=== PATIENT | male | born 1975 | race Caucasian/White ===

== ENCOUNTER 2021-11-29 11:18 | Emergency (ER) | payer OTHER, SELFPAY ==
[2021-11-29 11:59] VITALS: BP 132/96; PULSE 69; RESP 18; TEMP 36.7; O2SAT 100; BMI 18.1
[2021-11-29 13:43] LABS: MANUAL DIFF FLAG NO
[2021-11-29 13:49] LABS: Basophils Absolute Auto 0.1 X10*3/uL (0.0-0.2); Basophils Percent Auto 1.5 % (0-2); Eosinophils Absolute Auto 0.1 X10*3/uL (0.0-0.4); Eosinophils Percent Auto 1.5 % (0-4); Hematocrit 41.3 % (42.0-52.0); Hemoglobin 14.3 g/dl (14.0-18.0); Imm Gran Abs Auto 0.01 X10*3/uL (0.00-0.03); Imm Gran Pct Auto 0.2 % (0.0-0.4); Lymphocytes Absolute Auto 1.5 X10*3/uL (1.2-4.9); Lymphocytes Percent Auto 27.3 % (20-40); Mean Corpuscular HGB Conc 34.6 g/dl (31.0-36.0); Mean Corpuscular Hemoglobin 31.6 pg (27.0-33.0); Mean Corpuscular Volume 91.4 fL (80.0-98.0); Monocytes Absolute Auto 0.4 X10*3/uL (0.1-1.2); Monocytes Percent Auto 7.8 % (2-11); Neutrophils Absolute Auto 3.3 x10*3/uL (2.0-8.3); Neutrophils Percent Auto 61.7 % (45-73); Platelet Count 383 X10*3/uL (160-400); Red Blood Count 4.52 X10*6/uL (4.60-5.80); Red Cell Distribution Width 12.6 % (11.0-16.0); White Blood Count 5.4 X10*3/uL (4.8-10.8)
[2021-11-29 13:59] LABS: COVID-19 Test Negative (Negative)
[2021-11-29 14:06] LABS: Anion Gap 14 (12-20); Blood Urea Nitrogen 10 mg/dL (9-16); Calcium 9.9 mg/dL (8.4-10.2); Carbon Dioxide 27 mmol/L (22-29); Chloride 104 mmol/L (96-108); Creatinine Clr Calc Pharmacy 86.6; Estimated Glomerular Filt Rate > 60; Glucose Random 84 mg/dL (60-115); Lipase 37 U/L (8-78); Potassium 4.1 mmol/L (3.3-5.1); Sodium 141 mmol/L (135-145)
[2021-11-29 14:07] LABS: Alanine Aminotransferase 11 U/L (0-40); Albumin Level 4.6 g/dL (3.5-5.0); Alkaline Phosphatase 51 U/L (39-117); Aspartate Amino Transferase 17 U/L (5-37); Bilirubin Direct 0.3 mg/dL (0.0-0.5); Bilirubin Total 0.8 mg/dL (0.0-1.0); Total Protein 7.9 g/dL (6.5-8.0)
--- NOTE | 2021-11-29 16:00 | PC.NURSE ---
hasn't had BM since . no BM since Thursday. strong steady gait. skin pwd. moist mm. no palor. will continue to await from .
[2021-11-29 16:01] VITALS: BP 147/97; PULSE 75; RESP 18; TEMP 36.4; O2SAT 100
== END 2021-11-29 20:43 | disposition left against medical advice (07) ==
PROVIDERS: Emergency Provider Emergency Medicine
DX: R10.12 Left upper quadrant pain (principal); Z20.822 Contact with and (suspected) exposure to COVID-19
CPT/HCPCS: 36415; 80048; 80076; 83690; 85025; 87635; 99282; 99283

== ENCOUNTER 2022-12-03 06:29 | Day surgery (SDC) | payer OTHER, SELFPAY ==
[2022-12-03] VITALS (12 sets, daily range): BP systolic 131–158; BP diastolic 83–102; PULSE 60–90; RESP 14–20; TEMP 36.5–37.3; O2SAT 98–100; BMI 16.7
--- NOTE | ~2022-12-03 | CT_ITS ---
EXAMINATION: CT ABDOMEN AND PELVIS WITH CONTRAST CLINICAL INFORMATION: Left-sided pain COMPARISON: None TECHNIQUE: Multidetector volumetric images were obtained from the superior aspect of the liver through the pubic symphysis following administration 85 mL of Omnipaque 350 intravenous contrast. Sagittal and coronal reformatted images were obtained on the technologist's workstation. Oral contrast: No This CT examination was performed using dose optimization techniques as appropriate, variously including the following: *Automated exposure control *Adjustment of mA and/or kV according to patient size (this includes techniques or standardized protocols for targeted exams where dose is matched to indication/reason for exam; i.e. extremities or head) *Use of iterative reconstruction technique DLP: 305 mGy-cm FINDINGS: LUNG BASES: The visualized lung bases are unremarkable. LIVER, GALLBLADDER, AND BILIARY TREE: The liver is normal in size, shape, and attenuation. No focal hepatic lesion or biliary ductal dilatation is present. The gallbladder is unremarkable with no evidence of radiopaque gallstones, gallbladder wall thickening, or obvious pericholecystic inflammatory changes. PANCREAS: Unremarkable. SPLEEN: Unremarkable. ADRENAL GLANDS: Unremarkable. KIDNEYS AND URETERS: Severe right hydronephrosis upstream from a 1.2 x 0.6 x 0.5 cm stone in the mid ureter at the level of L5/ S1. There is mildly decreased nephrographic enhancement of the right kidney with respect to the left. There are a few bilateral simple renal cysts which are benign. No follow-up required. No significant perinephric stranding. BLADDER: Unremarkable. GASTROINTESTINAL TRACT: Small posterior gastric fundal diverticulum. The small and large bowel are unremarkable. The appendix is unremarkable. ABDOMINAL WALL: No significant hernia is appreciated. LYMPH NODES: Normal. VASCULAR: Unremarkable. PELVIC VISCERA: Unremarkable. OSSEOUS STRUCTURES: No acute or suspicious osseous abnormalities. CT/CT abdomen pelvis w IV con IMPRESSION: Large stone in the mid RIGHT ureter measuring up to 1.2 cm associated with severe hydroureteronephrosis / obstructive uropathy.
--- NOTE | ~2022-12-03 | FL_ITS ---
EXAMINATION: XR FLUOROSCOPY WITH IMAGES CLINICAL INFORMATION: Cystoscopy. COMPARISON: None. TECHNIQUE: Fluoroscopy Supervised By: David Shaw MD Fluoroscopy Time: 159.3 seconds. Cumulative Dose: 21.87 mGy. Images: 2. FINDINGS: There are 2 digital images obtained in the OR revealing a cystoscopy probe in the right distal ureter guidewire coiled in the mid ureter/UP junction. No gross bony abnormality seen. FL/FL guidance in OR IMPRESSION: Fluoroscopy was provided to referring physician for the procedure.
[2022-12-03 06:12] LABS: Basophils Absolute Auto 0.1 X10*3/uL (0.0-0.2); Basophils Percent Auto 0.9 % (0-2); Eosinophils Absolute Auto 0.1 X10*3/uL (0.0-0.4); Eosinophils Percent Auto 1.3 % (0-4); Hematocrit 47.5 % (42.0-52.0); Hemoglobin 16.3 g/dl (14.0-18.0); Imm Gran Abs Auto 0.01 X10*3/uL (0.00-0.03); Imm Gran Pct Auto 0.1 % (0.0-0.4); Lymphocytes Absolute Auto 1.9 X10*3/uL (1.2-4.9); MANUAL DIFF FLAG NO; Mean Corpuscular HGB Conc 34.3 g/dl (31.0-36.0); Mean Corpuscular Hemoglobin 30.8 pg (27.0-33.0); Mean Corpuscular Volume 89.6 fL (80.0-98.0); Monocytes Absolute Auto 0.7 X10*3/uL (0.1-1.2); Monocytes Percent Auto 8.9 % (2-11); Neutrophils Percent Auto 64.8 % (45-73); Platelet Count 381 X10*3/uL (160-400); Red Cell Distribution Width 11.9 % (11.0-16.0); White Blood Count 7.8 X10*3/uL (4.8-10.8)
--- NOTE | 2022-12-03 06:28 | PC.NURSE ---
PT A&Ox4, reports 2/10 LUQ abd pain, no radiation. States it feels dull and achy. Blood work collected and sent to lab.
[2022-12-03 06:29] LABS: Alanine Aminotransferase 9 U/L (0-40); Albumin Level 4.8 g/dL (3.5-5.0); Alkaline Phosphatase 61 U/L (39-117); Anion Gap 18 (12-20); Aspartate Amino Transferase 17 U/L (5-37); Bilirubin Direct 0.3 mg/dL (0.0-0.5); Bilirubin Total 0.9 mg/dL (0.0-1.0); Blood Urea Nitrogen 18 mg/dL (9-16); Carbon Dioxide 24 mmol/L (22-29); Chloride 100 mmol/L (96-108); Creatinine Clr Calc Pharmacy 61.9; Estimated Glomerular Filt Rate > 60; Glucose Random 101 mg/dL (60-115); Lipase 41 U/L (8-78); Sodium 138 mmol/L (135-145); Total Protein 8.3 g/dL (6.5-8.0)
--- OUTSIDE RECORDS SUMMARY | 2022-12-03 06:31 | XMS_ITS | Continuity of Care Document ---
:1975 Author Organization [facility] Address [address] [place] [address]- Care Team Providers Name Role Phone Not on Staff, PCP Primary Care Physician Unavailable [place] [facility] [place]): [place]/29/21 - 12/29/21 [facility] [address], [place] [address] Attending Physician: Case North Admitting Physician: Case North Referring Physician: Case North Allergies, Adverse Reactions, Alerts No Known Allergies Medications Flomax 0.4 mg oral capsule 1 capsule = 0.4 mg, By Mouth, Daily, # 7 capsule, 0 Refills, Maintenance, 05/03/15 10:55:11 Start Date: 05/03/15 Stop Date: 05/10/15 Status: Ordered
--- NOTE | 2022-12-03 07:04 | ED.ABDPAIN ---
HPI - Abdominal Pain General Chief Complaint: Abdominal Pain Stated Complaint: Abd pain/Headache Time Seen by Provider: 12/03/22 06:55 Source: patient History of Present Illness HPI narrative: 47-year-old male with ?dull? left-sided abdominal pain since Thursday with multiple episodes of nausea and vomiting without diarrhea and denies any fever, chills, shortness of breath or chest pain and denies any urinary symptoms. He has never had this pain before and denies any unexplained weight loss or night sweats. Related Data Allergies Allergy/AdvReac Type Severity Reaction Status Date / Time No Known Allergies Allergy Verified 11/29/21 11:58 Review of Systems Review of Systems Pertinent positives and negatives as stated in HPI [facility] Past Medical History Source: nursing notes reviewed Social History Social History Alcohol intake: never Smoked in Last 30 Days: No Use of substances other than those prescribed or required for medical reasons: No Advance Directives: No Advance Directives Information Provided: Yes Physical Exam ED Vital Signs: Vital Signs - 24 hr 12/03/22 05:48 12/03/22 07:00 12/03/22 08:42 Temperature 97.8 F 97.9 F Pulse Rate 90 83 62 Respiratory Rate 18 20 16 Blood Pressure 158/100 H 149/102 H 131/94 H Pulse Oximetry 98 98 100 Oxygen Delivery Method Room Air Room Air Room Air BMI result Body Mass Index 16.7 VITAL SIGNS: Reviewed. GENERAL: Well developed, very slender, in no acute distress. HEAD: Normocephalic/atraumatic EYES: PERRLA, EOMI intact without pain, no nystagmus/pallor/icterus noted EARS: Ext canals without abnormality OROPHARYNX: no oral lesions noted, posterior pharynx clear LUNGS: Normal breath sounds. No adventitious sounds or accessory muscle use. SpO2<98> CARDIOVASCULAR: Regular rate and rhythm without noted murmurs ABDOMEN: Soft, non-tender even on deep palpation, non-distended with bowel sounds. MUSCULOSKELETAL: No tenderness, deformities, or effusions noted on gross inspection. EXTREMITIES: No cyanosis, clubbing or edema. SKIN: Inspection of the skin reveals no rashes NEUROLOGIC: Alert and oriented x 4. Strength and sensation to light touch were grossly intact x 4. Medical Decision Making Medical Decision Making MDM Narrative: 47-year-old male with left-sided dull abdominal pain and associated nausea and vomiting, negative surgical history of the abdomen and still has gallbladder and appendix. 0818: I have reviewed the workup and my interpretation is this patient has obstructive uropathy a stone measured at 1.2 cm with associated severe hydroureteronephrosis. I have reached out to the testing consultant from Urology, Dr. Shaw and made the patient NPO, giving IV fluids and pain medications. I did discuss the results and findings with the patient at bedside. 0820: Patient to be admitted to the Urology Service. Differential Diagnosis Please to the discussion above Admission/Observation Consideration of admission/observation: Escalation of care including admission/observation considered Consult Healthcare Provider Management of the patient was discussed with: District Sales Representative Please see the discussion above Lab Data MDM Lab Attestation statement: I reviewed the patient's lab results. Please see the discussion above 12/03/22 06:07 12/03/22 06:07 Labs: Lab Results 12/03/22 12/03/22 12/03/22 Range/Units 06:07 06:07 07:45 WBC 7.8 (4.8-10.8) X10*3/uL RBC 5.30 (4.60-5.80) X10*6/uL Hgb 16.3 (14.0-18.0) g/dl Hct 47.5 (42.0-52.0) % MCV 89.6 (80.0-98.0) fL MCH 30.8 (27.0-33.0) pg MCHC 34.3 (31.0-36.0) g/dl RDW 11.9 (11.0-16.0) % Plt Count 381 (160-400) X10*3/uL MPV 9.0 L (9.4-12.4) fL Immature Gran % (Auto) 0.1 (0.0-0.4) % Neut % (Auto) 64.8 (45-73) % Lymph % (Auto) 24.0 (20-40) % [place] % (Auto) 8.9 (2-11) % Eos % (Auto) 1.3 (0-4) % Baso % (Auto) 0.9 (0-2) % Lymph # (Auto) 1.9 (1.2-4.9) X10*3/uL [place] # (Auto) 0.7 (0.1-1.2) X10*3/uL Eos # (Auto) 0.1 (0.0-0.4) X10*3/uL Baso # (Auto) 0.1 (0.0-0.2) X10*3/uL Abs Immat Gran (auto) 0.01 (0.00-0.03) X10*3/uL Absolute Neuts (auto) 5.0 (2.0-8.3) x10*3/uL Absolute Nucleated RBC 0.000 (0.0-0.012) X10*3/uL Nucleated RBC % (auto) 0.0 (0.0-0.2) /100WBC Sodium 138 (135-145) mmol/L Potassium 4.0 (3.3-5.1) mmol/L Chloride 100 (96-108) mmol/L Carbon Dioxide 24 (22-29) mmol/L Anion Gap 18 (12-20) BUN 18 H D (9-16) mg/dL Creatinine 1.11 (0.5-1.4) mg/dL Estim Creat Clear Calc 61.9 Estimated GFR > 60 Random Glucose 101 (60-115) mg/dL Calcium 10.0 (8.4-10.2) mg/dL Total Bilirubin 0.9 (0.0-1.0) mg/dL Direct Bilirubin 0.3 (0.0-0.5) mg/dL AST 17 (5-37) U/L ALT 9 (0-40) U/L Alkaline Phosphatase 61 (39-117) U/L Total Protein 8.3 H (6.5-8.0) g/dL Albumin 4.8 (3.5-5.0) g/dL Lipase 41 (8-78) U/L Urine Color Urine Appearance Urine pH (5.0-9.0) Ur Specific [place] (1.005-1.025) Urine Protein (Neg-Trace) mg/dL Urine Glucose (UA) (Negative) mg/dL Urine Ketones (Negative) mg/dL Urine Blood (Negative) Urine Nitrite (Negative) Ur Leukocyte Esterase (Negative) Urine RBC (0-2) /HPF Urine WBC (0-5) /HPF Ur Squamous Epith Cells (0-2) /HPF Urine Bacteria (None Seen) Hyaline Casts (0-2) /LPF COVID-19 ([facility]) (Negative) COVID-19 Clin Com Influenza Type A (CHILO) Negative (Negative) Influenza Type B (CHILO) Negative (Negative) Influenza A & B Note See Note 12/03/22 12/03/22 Range/Units 07:45 08:15 WBC (4.8-10.8) X10*3/uL RBC (4.60-5.80) X10*6/uL Hgb (14.0-18.0) g/dl Hct (42.0-52.0) % MCV (80.0-98.0) fL MCH (27.0-33.0) pg MCHC (31.0-36.0) g/dl RDW (11.0-16.0) % Plt Count (160-400) X10*3/uL MPV (9.4-12.4) fL Immature Gran % (Auto) (0.0-0.4) % Neut % (Auto) (45-73) % Lymph % (Auto) (20-40) % [place] % (Auto) (2-11) % Eos % (Auto) (0-4) % Baso % (Auto) (0-2) % Lymph # (Auto) (1.2-4.9) X10*3/uL [place] # (Auto) (0.1-1.2) X10*3/uL Eos # (Auto) (0.0-0.4) X10*3/uL Baso # (Auto) (0.0-0.2) X10*3/uL Abs Immat Gran (auto) (0.00-0.03) X10*3/uL Absolute Neuts (auto) (2.0-8.3) x10*3/uL Absolute Nucleated RBC (0.0-0.012) X10*3/uL Nucleated RBC % (auto) (0.0-0.2) /100WBC Sodium (135-145) mmol/L Potassium (3.3-5.1) mmol/L Chloride (96-108) mmol/L Carbon Dioxide (22-29) mmol/L Anion Gap (12-20) BUN (9-16) mg/dL Creatinine (0.5-1.4) mg/dL Estim Creat Clear Calc Estimated GFR Random Glucose (60-115) mg/dL Calcium (8.4-10.2) mg/dL Total Bilirubin (0.0-1.0) mg/dL Direct Bilirubin (0.0-0.5) mg/dL AST (5-37) U/L ALT (0-40) U/L Alkaline Phosphatase (39-117) U/L Total Protein (6.5-8.0) g/dL Albumin (3.5-5.0) g/dL Lipase (8-78) U/L Urine Color Yellow Urine Appearance Hazy Urine pH 6.0 (5.0-9.0) Ur Specific [place] 1.010 (1.005-1.025) Urine Protein Negative (Neg-Trace) mg/dL Urine Glucose (UA) Negative (Negative) mg/dL Urine Ketones 15 (Negative) mg/dL Urine Blood Small (1+) H (Negative) Urine Nitrite Negative (Negative) Ur Leukocyte Esterase Negative (Negative) Urine RBC 3-5 H (0-2) /HPF Urine WBC >50 H (0-5) /HPF Ur Squamous Epith Cells 0-2 (0-2) /HPF Urine Bacteria 4+ (None Seen) Hyaline Casts 0-2 (0-2) /LPF COVID-19 ([facility]) Negative (Negative) COVID-19 Clin Com See Note Influenza Type A (CHILO) (Negative) Influenza Type B ([facility]O) (Negative) Influenza A & B Note Radiology Impression Radiologist Impression: My interpretation is in agreement with radiology's impression of the imaging study. External Record Review External record reviewed: Prior outpatient labs Medications Administered Discontinued Medications Generic Name Dose Route Start Last Admin Trade Name Freq PRN Reason Stop Dose Admin Sodium Chloride 1,000 mls @ 999 mls/hr 12/03/22 08:15 12/03/22 08:40 Ns IV 12/03/22 09:15 999 mls/hr .Q1H1M BHARGAVI Administration Iohexol 85 ml 12/03/22 07:35 12/03/22 07:36 Iohexol 350 Mg/Ml 100 Ml Infus..Btl IV 12/03/22 07:36 85 ml ONCE ONE Administration Ketorolac Tromethamine 15 mg 12/03/22 08:15 12/03/22 08:40 Ketorolac Tromethamine 30 Mg/Ml Vial IVPUSH 12/03/22 08:16 15 mg ONCE ONE Administration Critical Care Time Critical Care Time Critical Care Time: Yes Total Critical Care Time: 30 Attestation: I personally attest to this time spent taking care of the patient. Discharge Plan Discharge Clinical Impression: Obstructed, uropathy, Hydroureteronephrosis Patient Disposition: Admitted As Inpatient
[2022-12-03] MEDS: iohexoL 350 MG/ML 100 ML INFUS..BTL 85 ML IV (07:36)
[2022-12-03 08:16] LABS: COVID-19 Test Negative (Negative); IDNOW Serial# 55D5AD1C; IDNOW Serial# 9DB6401D; Influenza A Negative (Negative); Influenza B2 Negative (Negative)
[2022-12-03 08:34] LABS: Appearance Urine Hazy; Color Urine Yellow; Glucose Urine UA Negative (Negative); Leukocyte Esterase Urine Negative (Negative); Nitrite Urine Negative (Negative); UMIC TRIGGER UACC YES; Urine Blood Small (1+) (Negative); Urine Ketones 15 mg/dL (Negative); Urine Protein Negative (Neg-Trace)
[2022-12-03] MEDS: 0.9 % Sodium Chloride 1,000 ML 999 ML IV (08:40)
[2022-12-03] MEDS: Ketorolac Tromethamine 30 MG/ML VIAL 15 MG IVPUSH (08:40)
[2022-12-03 09:01] LABS: Bacteria Urine 4+ (None Seen); Hyaline Casts Urine 0-2 /LPF (0-2); Squamous Epithelial Cell Urine 0-2 /HPF (0-2); UACC Culture Trigger YES; WBC Urine >50 /HPF (0-5)
--- NOTE | 2022-12-03 10:48 | PHA.MEDREC ---
Pharmacy Consult ? Medication Reconciliation Pharmacy has completed the medication reconciliation.
--- NOTE | 2022-12-03 10:58 | PM.UROCN ---
History of Present Illness Consult details Consult date: 12/03/22 Narrative: CC: right mid ureteric stone with hydroureteronephrosis Presented to hospital with dull left abdominal pain. Associated nausea or vomiting. CT scan performed revealed Severe right hydronephrosis upstream from a 1.2 x 0.6 x 0.5 cm stone in the mid ureter at the level of L5/ S1. There is mildly decreased nephrographic enhancement of the right kidney with respect to the left Clearly visible is chronic nature of situation. Effacement is seen within the renal pelvis. Creatinine 1.1 previously measured 0.9 Calcium 10.0, WBC 7.8 Urine with white cells and red cells but otherwise unremarkable He denies having hematuria or any right-sided discomfort Prior stone episode number of years ago but none since Based on consideration of the imaging findings recommendation for intervention with right retrograde, ureteroscopy laser lithotripsy stent placement is suggested. Review of Systems Constitutional: Constitutional: Reports as per HPI and Reports no additional constitutional complaints Cardiovascular: Cardiovascular: Reports as per HPI and Reports no additional cardiovascular complaints Respiratory: Respiratory: Reports as per HPI and Reports no additional respiratory complaints Gastrointestinal: Gastrointestinal: Reports as per HPI and Reports no additional gastrointestinal complaints Genitourinary: Genitourinary: Reports as per HPI Musculoskeletal: Musculoskeletal: Reports no additional musculoskeletal complaints and Reports as per HPI Neurologic: Reports system reviewed and no additional complaints, except as documented and Reports as per HPI [facility] Social History Social History Alcohol intake: never Smoked in Last 30 Days: No Use of substances other than those prescribed or required for medical reasons: No Advance Directives: No Advance Directives Information Provided: Yes Meds Allergies Allergy/AdvReac Type Severity Reaction Status Date / Time No Known Allergies Allergy Verified 11/29/21 11:58 Active Medications: Current Medications Acetaminophen (Acetaminophen Supp 650 Mg Supp.Rect) 650 mg MN Q6H PRN PRN Reason: Pain, Mild (Pain Scale 1-3) Sodium Chloride (Sodium Chloride 0.45 %) 1,000 mls @ 100 mls/hr IVCONT .Q10H BHARGAVI Levofloxacin (Levaquin) 500 mg in 100 mls @ 100 mls/hr IV PREOP ONE Stop: 12/03/22 11:45 Ketorolac Tromethamine (Ketorolac Tromethamine 15 Mg/Ml Vial) 15 mg IVPUSH Q6H PRN PRN Reason: Pain, Moderate (Pain Scale 4-6 Oxycodone HCl (Oxycodone Hcl Immed Release 5 Mg Tablet) 5 mg PO Q6H PRN PRN Reason: Pain, Severe (Pain Scale 7-10) Sodium Chloride (0.9 % Sodium Chloride Flush 3 Ml Syringe) [facility] Medications Medication Instructions Recorded Confirmed Last Taken Type No Known Home Meds 12/03/22 12/03/22 Unknown History Physical Exam Vital Signs: Vital Signs: Last Vital Signs Temp 97.9 F 12/03/22 07:00 Pulse 62 12/03/22 08:42 Resp 16 12/03/22 08:42 BP 131/94 H 12/03/22 08:42 Pulse Ox 100 12/03/22 08:42 O2 Del Method 12/03/22 08:42 BMI result Body Mass Index 16.7 Const: General: cooperative, healthy appearing, comfortable and no acute distress Orientation/consciousness: patient oriented x3 HEENT: Face and sinus: Yes normal facial exam Mouth: moist mucous membranes Neck: Neck: Yes normal visual inspection, Yes full ROM and Yes trachea midline Chest: Chest palpation & inspection: normal inspection of the chest Resp: Effort & Inspection: normal respiratory effort, able to speak in complete sentences and no respiratory distress GI: Inspection: Yes normal to inspection Back/Spine/Pelvis: Cervical Spine: normal cervical lordosis Thoracic/Lumbar Spine: thoracic and lumbar spine normal to inspection Skin: General skin exam: no rashes or lesions noted Neuro: General: patient oriented x3, tone normal and moves all extremities Extrem: General: Yes normal to inspection and Yes capillary refill normal Results Labs 12/03/22 06:07 12/03/22 06:07 Labs: Abnormal lab results 12/03/22 12/03/22 12/03/22 Range/Units 06:07 06:07 08:15 MPV 9.0 L (9.4-12.4) fL BUN 18 H D (9-16) mg/dL Total Protein 8.3 H (6.5-8.0) g/dL Urine Blood Small (1+) H (Negative) Urine RBC 3-5 H (0-2) /HPF Urine WBC >50 H (0-5) /HPF Short CBC 12/03/22 Range/Units 06:07 WBC 7.8 (4.8-10.8) X10*3/uL Hgb 16.3 (14.0-18.0) g/dl Hct 47.5 (42.0-52.0) % Plt Count 381 (160-400) X10*3/uL BMP 12/03/22 06:07 Sodium 138 Potassium 4.0 Chloride 100 Carbon Dioxide 24 BUN 18 H D Creatinine 1.11 Calcium 10.0 Liver Function 12/03/22 Range/Units 06:07 Total Bilirubin 0.9 (0.0-1.0) mg/dL Direct Bilirubin 0.3 (0.0-0.5) mg/dL AST 17 (5-37) U/L ALT 9 (0-40) U/L Alkaline Phosphatase 61 (39-117) U/L Albumin 4.8 (3.5-5.0) g/dL Urine 12/03/22 Range/Units 08:15 Urine Color Yellow Urine Appearance Hazy Urine pH 6.0 (5.0-9.0) Ur Specific [place] 1.010 (1.005-1.025) Urine Protein Negative (Neg-Trace) mg/dL Urine Glucose (UA) Negative (Negative) mg/dL All other labs normal. Assessment and Plan (1) Obstructed, uropathy: Status: Acute (2) Nephrolithiasis: Status: Acute Plan Ureteroscopy We discussed the nature of the decision and reasonable alternatives for performing ureteroscopy. Options such as medical therapy were discussed. Interventions include chemical dissolution, ESWL, ureteroscopy with laser lithotripsy and stent placement, PCNL. The relative uncertainties and benefits related to each alternate procedure were adequately discussed. General surgical risks including, but not limited to - pain, bleeding, infection, myocardial infarction, pulmonary embolus, deep vein thrombosis and cerebrovascular accident which may result in further hospitalization were discussed. Full disclosure of the procedure as well as all major risks, benefits and complications were discussed including but not limited to damage to the urethra, bladder and kidney infection, damage to the ureter, stent migration or malposition, scarring to the renal pelvis, remnant stone fragments, subsequent stone passage with need for secondary procedures. The overall secondary procedure rate is approximately 10-15%. The overall clearance rate is approximately 90-95%. Success of the procedure in the short-term does not necessarily guarantee that long-term success will be maintained. Suitable follow up will need to be maintained. The patient showed understanding of discussion and wishes to proceed with - cystoscopy, retrograde, ureteroscopy, possible lithotripsy/stone basketing and stent on the right side - rigid scope Time Spent With Patient Time: Total time managing care of this patient today ____ minutes. Procedures Date of Service Date of Service: 12/03/22
[2022-12-03] MEDS: levoFLOXacin/D5W 500 MG/100 ML PIGGYBACK 100 MG IV (11:05)
[2022-12-03] MEDS: Sodium Chloride 0.45 % 1,000 ML 100 ML IVCONT (11:09)
--- NOTE | 2022-12-03 18:08 | MHC.SHP ---
Pre-Procedural Eval Section A Date of Service: 12/03/22 The patient is an INPATIENT: Yes Changes since office visit: No Cold of Flu in the past 2 weeks, No New Medical Problems, No Changes in Medication and No Patient answered all questions The History & Physical has been completed within 30 days and I have reviewed it.: Yes Section B Chief Complaint: Right ureteric stone Relevant Social History: None Present Medications: see Short Stay Collaborative assessment Medical History: No relevant PMH History of Previous Operations: No relevant previous surgery Allergies: Allergies Allergy/AdvReac Type Severity Reaction Status Date / Time No Known Allergies Allergy Verified 11/29/21 11:58 Review of Systems Sugical H&P ROS: Negative: Constitution, Cardiovascular, Respiratory, Neurological, Psychiatric, Hem-Onc, Allergic/Immunologic, Gastrointestinal, Genitourinary, Musculoskeletal, Integumentary, Endocrine and Eyes/Ears/Nose/Throat Exam Surgical H&P Exam: Normal: HEENT, Normal: Heart, Normal: Lungs, Normal: Extremities, Normal: Abdomen, Normal: Skin and Normal: Neurological Plan Diagnosis/Plan: Unchanged (cystoscopy, right retrograde, ureteroscopy, laser, stent) I have reviewed the history and physical and performed a pertinent physical examination on my patient. No changes have occurred unless specified. Time Spent With Patient Time: Total time managing care of this patient today ____ minutes.
--- NOTE | 2022-12-03 18:37 | P.CONAN_ITS ---
HPI - Anesthesia Eval Consult details Narrative: Rt. hydronephrosis PMFSH Active Problems Active Problems: All Active Problems (Updated 12/03/22 @ 11:02 by David Shaw MD) Nephrolithiasis (Acute) Obstructed, uropathy (Acute) Hydroureteronephrosis (Acute) Family History Family history of problems with anesthesia: No Surgical History History of Problems with Anesthesia: No Social History Social History Alcohol intake: never Meds Allergies Allergy/AdvReac Type Severity Reaction Status Date / Time No Known Allergies Allergy Verified 11/29/21 11:58 Active Medications: Current Medications Acetaminophen (Acetaminophen Supp 650 Mg Supp.Rect) 650 mg [place] Q6H PRN PRN Reason: Pain, Mild (Pain Scale 1-3) Sodium Chloride (Sodium Chloride 0.45 %) 1,000 mls @ 100 mls/hr IVCONT .Q10H [facility] Last Admin: 12/03/22 11:09 Dose: 100 mls/hr Ketorolac Tromethamine (Ketorolac Tromethamine 15 Mg/Ml Vial) 15 mg IVPUSH Q6H PRN PRN Reason: Pain, Moderate (Pain Scale 4-6 Oxycodone HCl (Oxycodone Hcl Immed Release 5 Mg Tablet) 5 mg PO Q6H PRN PRN Reason: Pain, Severe (Pain Scale 7-10) Sodium Chloride (0.9 % Sodium Chloride Flush 3 Ml Syringe) 3 ml IVFLUSH QSHIFT [facility] Last Admin: 12/03/22 15:54 Dose: Not Given Home Medications Medication Instructions Recorded Confirmed Last Taken Type No Known Home Meds 12/03/22 12/03/22 Unknown History Exam Exam Date and Time: December 03, 20227 Height,Weight and Vital Signs: Height 5 ft 11 in Weight 54.431 kg Last Vital Signs Temp 99.1 F 12/03/22 17:43 Pulse 66 12/03/22 17:43 Resp 18 12/03/22 17:43 BP 148/96 H 12/03/22 17:43 Pulse Ox 100 12/03/22 17:43 O2 Del Method 12/03/22 17:43 Pertinent Lab Results Pertinent Lab Results: Laboratory Tests 12/03/22 12/03/22 12/03/22 06:07 06:07 07:45 WBC 7.8 RBC 5.30 Hgb 16.3 Hct 47.5 MCV 89.6 MCH 30.8 MCHC 34.3 RDW 11.9 Plt Count 381 MPV 9.0 L Immature Gran % (Auto) 0.1 Neut % (Auto) 64.8 Lymph % (Auto) 24.0 [place] % (Auto) 8.9 Eos % (Auto) 1.3 Baso % (Auto) 0.9 Lymph # (Auto) 1.9 [place] # (Auto) 0.7 Eos # (Auto) 0.1 Baso # (Auto) 0.1 Abs Immat Gran (auto) 0.01 Absolute Neuts (auto) 5.0 Absolute Nucleated RBC 0.000 Nucleated RBC % (auto) 0.0 Sodium 138 Potassium 4.0 Chloride 100 Carbon Dioxide 24 Anion Gap 18 BUN 18 H D Creatinine 1.11 Estim Creat Clear Calc 61.9 Estimated GFR > 60 Random Glucose 101 Calcium 10.0 Total Bilirubin 0.9 Direct Bilirubin 0.3 AST 17 ALT 9 Alkaline Phosphatase 61 Total Protein 8.3 H Albumin 4.8 Lipase 41 Urine Color Urine Appearance Urine pH Ur Specific [place] Urine Protein Urine Glucose (UA) Urine Ketones Urine Blood Urine Nitrite Ur Leukocyte Esterase Urine RBC Urine WBC Ur Squamous Epith Cells Urine Bacteria Hyaline Casts COVID-19 ([facility]) COVID-19 Clin Com Influenza Type A (CHILO) Negative Influenza Type B ([facility]O) Negative Influenza A & B Note See Note 12/03/22 12/03/22 07:45 08:15 WBC RBC Hgb Hct MCV MCH MCHC RDW Plt Count MPV Immature Gran % (Auto) Neut % (Auto) Lymph % (Auto) [place] % (Auto) Eos % (Auto) Baso % (Auto) Lymph # (Auto) [place] # (Auto) Eos # (Auto) Baso # (Auto) Abs Immat Gran (auto) Absolute Neuts (auto) Absolute Nucleated RBC Nucleated RBC % (auto) Sodium Potassium Chloride Carbon Dioxide Anion Gap BUN Creatinine Estim Creat Clear Calc Estimated GFR Random Glucose Calcium Total Bilirubin Direct Bilirubin AST ALT Alkaline Phosphatase Total Protein Albumin Lipase Urine Color Yellow Urine Appearance Hazy Urine pH 6.0 Ur Specific [place] 1.010 Urine Protein Negative Urine Glucose (UA) Negative Urine Ketones 15 Urine Blood Small (1+) H Urine Nitrite Negative Ur Leukocyte Esterase Negative Urine RBC 3-5 H Urine WBC >50 H Ur Squamous Epith Cells 0-2 Urine Bacteria 4+ Hyaline Casts 0-2 COVID-19 ([facility]) Negative COVID-19 Clin Com See Note Influenza Type A (CHILO) Influenza Type B (CHILO) Influenza A & B Note Airway Mallampati Class: II TM Dist: >3cm Neck ROM: Full Loose/Missing/Broken Teeth: No Heart: RRR Lungs: CTA Assessment and Plan Assessment Anesthesia Assessment: Anesthesia Plan Discussed and Chart Reviewed Final Anesthetic Review Family History of Problems with Anesthesia: No History of Problems with Anesthesia: No NPO: Yes ASA Class: I and Emergency Final Preanesthetic Review: No Changes in Pt Med Stat, Meds/Allgs Chart Reviewed, Consent Obtained/Reviewed and Anes Risks/Benef Reviewed Patient Risk: Low Procedure Risk: Low Anesthetic Plan Anesthetic Plan: GA Disposition: Standard PACU
--- NOTE | 2022-12-03 19:39 | P.OP_ITS ---
Operative Note Operative Note Date of Service: 12/03/22 Narrative: PreOperative Diagnosis: Right mid ureter impacted stone with hydroureteronephrosis Post Operative Diagnosis: Right mid ureter impacted stone with hydroureteronephrosis partially treated Procedure: - cystoscopy, right retrograde - right dilatation of ureteric orifice under fluoroscopy - right ureteroscopy, laser lithotripsy Surgeon: Dr David Shaw Anesthesia: General Indications for procedure: Impacted right mid ureteric stone with hydroureteronephrosis if chronic nature. Creatinine 1.1. Procedure: After informed consent was verified patient was brought to the operating placed in supine position. Anesthesia was administered per protocol. Patient was placed in modified dorsal lithotomy position and prepped and draped in a sterile fashion. Safety pause time-out and side of surgery confirmed. Antibiotics confirmed. 22 [place] cystoscope was inserted per urethra. Bladder was normal in its entirety. Both ureteric orifices were in normal position. The right ureteric orifice was cannulated and a retrograde examination was performed. Filling defects seen with tortuous proximal ureter. A Sensor guidewire was placed up to the level of the stone and did not pass the stone. The open-ended catheter was placed. More contrast was placed in order to try to lubricate around the stone. The Sensor wire could not pass. A angled Glidewire was placed. This too was not able to be placed around the stone. We switched back to the Sensor wire was placed up to level the stone. The ureteric access sheath was placed and the inner cannula with access wire removed. The inner cannula of the access sheath was used to dilate the ureter. The total access sheath was placed under visualization to within 3 cm of the stone. The rigid ureteral scope was placed through the sheath. We navigated up to the area where there was a sharp bend for stone was presents. We were able to place the angled Glidewire around the bend and then to follow this with the scope until the stone was encountered. Using the 365 micron holmium laser the stone was started to be broken. Part way through with the stone had been dusted the stone moved and direct access was lost. Attempt was made placed the wire back however it appeared to go submuc osal and did not go up to the stone again. Based on the difficulty gaining wire based access the decision was made not to come to new with the procedure. This scope and the sheath removed. The bladder was emptied. The patient tolerated the procedure well and was extubated in the operating room, and transferred in stable condition to the recovery area. Plan will be to place a right PCN is outpatient and come from above to complete breaking up the remnant portion of the stone. Pathology: none Drains: none
--- NOTE | 2022-12-03 20:14 | PM.EVENT ---
Event Note Date of Service: 12/03/22 Event Note: Before placing LMA it was noted that pt has severely decayed upper teeth with black discoloration near the gum line. They did not appear to be unstable upon palpation. During emergence from anesthesia the LMA removal was attempted when tje sp-ontaneous breathing was resumed but by this time he clamping teeth on LMA shaft and broke right upper incisor above the gum line. No signs of bleeding or gum damage. The tooth piece was collected in the cup and giving the pt. Pt reports no pain Time Spent With Patient Time: Total time managing care of this patient today ____ minutes.
== END 2022-12-03 20:32 | disposition home or self-care (01) ==
LOC: HO.ED 10:07 → HO.EDOVER 13:15 → HO.ED 20:40
PROVIDERS: Emergency Medicine; Urology; Visit Provider Student in an Organized Health Care Education/Training Program
PROC: (CPT 52353; principal; 2022-12-03 19:25)
DX: N13.2 Hydronephrosis with renal and ureteral calculous obstruction (principal); Z53.8 Procedure and treatment not carried out for other reasons; T88.59XA Other complications of anesthesia, initial encounter; S02.5XXA Fracture of tooth (traumatic), initial encounter for closed fracture; K02.9 Dental caries, unspecified; Y92.234 Operating room of hospital as the place of occurrence of the external cause; Y83.8 Other surgical procedures as the cause of abnormal reaction of the patient, or of later complication, without mention of misadventure at the time of the procedure; Y70.2 Prosthetic and other implants, materials and accessory anesthesiology devices associated with adverse incidents; Y93.89 Activity, other specified; Y99.8 Other external cause status; Z20.822 Contact with and (suspected) exposure to COVID-19; N13.9 Obstructive and reflux uropathy, unspecified; R10.9 Unspecified abdominal pain; N28.1 Cyst of kidney, acquired
CPT/HCPCS: 52353; 36415; 74177; 80053; 81001; 82248; 83690; 85025; 87086; 87502; 87635; 96361; 96374; 99285; 99499; C1758; C1769; J1100; J1885; J1956; J2405; J3010; Q9967

== ENCOUNTER 2022-12-05 14:47 | Emergency (ER) | payer OTHER, SELFPAY ==
[2022-12-05 14:55] VITALS: BP 130/88; PULSE 101; RESP 18; TEMP 37.1; O2SAT 98; BMI 16.7
--- NOTE | 2022-12-05 15:11 | ED_ITS ---
HPI - Abdominal Pain General Chief Complaint: Abdominal Pain <Alice Eastman NP - Last Filed: 12/05/22 15:11> Stated Complaint: Abdominal Pain <Alice Eastman NP - Last Filed: 12/05/22 15:11> Time Seen by Provider: 12/05/22 15:35 <Alice Eastman NP - Last Filed: 12/05/22 15:11> Source: patient <ADELINA Kennedy - Last Filed: 12/05/22 17:56> Mode of arrival: ambulatory <ADELINA Kennedy - Last Filed: 12/05/22 17:56> History of Present Illness HPI narrative: 47-year-old male with a past medical history of right mid ureter impacted stone with hydroureteronephrosis diagnosed on 12/03/2022 s/p cystoscopy without full stone removal, presenting to the ED complaining persistent right flank pain radiating to right abdomen x2 days. Reports associated nausea and gross hematuria. Denies vomiting, diarrhea, fever/chills <ADELINA Kennedy - Last Filed: 12/05/22 17:56> MD elicited complaint: abdominal pain and flank pain <ADELINA Kennedy - Last Filed: 12/05/22 17:56> Pertinent past history: kidney stones <ADELINA Kennedy - Last Filed: 12/05/22 17:56> Onset (ago): day(s) <ADELINA Kennedy - Last Filed: 12/05/22 17:56> Related Data Home Medications: Previous Rx's Medication Instructions Recorded levofloxacin 500 mg tablet 500 mg PO DAILY #7 tabs 12/03/22 oxycodone-acetaminophen 5 mg-325 1 tab PO Q4H PRN pain (scale score 12/03/22 mg tablet 4-6) 7 days #14 tabs oxycodone-acetaminophen 5 mg-325 1 tab PO Q8H PRN pain #30 tabs 12/05/22 mg tablet (Percocet) <Alice Eastman NP - Last Filed: 12/05/22 15:11> Allergies/Adverse Reactions: Allergies Allergy/AdvReac Type Severity Reaction Status Date / Time No Known Allergies Allergy Verified 11/29/21 11:58 <Alice Eastman NP - Last Filed: 12/05/22 15:11> Review of Systems Review of Systems Constitutional: No Fever, No Chills, No Fatigue, No Malaise ENT/Mouth: No Hearing loss, No Ear Pain, No Nasal Congestion,No sore throat, No Rhinorrhea, No Swallowing Difficulty Eyes: No Eye Pain, No Swelling, No Redness, No Vision Changes Cardiovascular: No Chest Pain, No SOB, No Palpitations Respiratory: No Cough, No Sputum, No Dyspnea Gastrointestinal: + Nausea, No Vomiting, No Diarrhea, No Constipation, + Abdominal pain Genitourinary: No irregular bleeding, No Dysuria, No Urinary Frequency, + Hematuria, No Urinary Incontinence/retention, No Urgency, + Flank Pain, No Urinary Flow Changes Musculoskeletal: No joint pain, No Myalgias, No Joint Swelling Skin: No Skin Lesions, No rash Neuro: No Weakness, No Dizziness, No Headache <ADELINA Kennedy - Last Filed: 12/05/22 17:56> Yes all other systems are reviewed and are negative <ADELINA Kennedy - Last Filed: 12/05/22 17:56> Constitutional: Reports as per HPI <ADELINA Kennedy - Last Filed: 12/05/22 17:56> PMFSH Past Medical History Attestation statement: The following information was validated with the patient. <ADELINA Kennedy - Last Filed: 12/05/22 17:56> Social History Social History: Social History Alcohol intake: never Advance Directives: No Advance Directives Information Provided: No <Alice Eastman NP - Last Filed: 12/05/22 15:11> Physical Exam ED Vital Signs: Vital Signs - 24 hr 12/05/22 14:55 12/05/22 16:00 Temperature 98.7 F 99.4 F Pulse Rate 101 H 91 Respiratory Rate 18 16 Blood Pressure 130/88 122/85 Pulse Oximetry 98 100 Oxygen Delivery Method Room Air Room Air BMI result Body Mass Index 16.7 <ELIANA Ghosh Last Filed: 12/05/22 15:11> Vital Signs - 24 hr 12/05/22 14:55 12/05/22 16:00 Temperature 98.7 F 99.4 F Pulse Rate 101 H 91 Respiratory Rate 18 16 Blood Pressure 130/88 122/85 Pulse Oximetry 98 100 Oxygen Delivery Method Room Air Room Air BMI result Body Mass Index 16.7 <ADELINA Kennedy - Last Filed: 12/05/22 17:56> Vital Signs - 24 hr 12/05/22 14:55 12/05/22 16:00 Temperature 98.7 F 99.4 F Pulse Rate 101 H 91 Respiratory Rate 18 16 Blood Pressure 130/88 122/85 Pulse Oximetry 98 100 Oxygen Delivery Method Room Air Room Air BMI result Body Mass Index 16.7 <ADELINA Almonte - Last Filed: 12/05/22 18:28> Const General: cooperative and no acute distress <ADELINA Kennedy - Last Filed: 12/05/22 17:56> Orientation/consciousness: patient oriented x3 <ADELINA Kennedy - Last Filed: 12/05/22 17:56> Limitations: no limitations <ADELINA Kennedy - Last Filed: 12/05/22 17:56> HENMT Head: Yes normal to inspection and Yes atraumatic <ADELINA Kennedy - Last Filed: 12/05/22 17:56> Ears: hearing grossly normal bilaterally <ADELINA Kennedy - Last Filed: 12/05/22 17:56> General nose exam: Normal external nose present <ADELINA Kennedy - Last Filed: 12/05/22 17:56> Face and sinus: Yes normal facial exam <ADELINA Kennedy - Last Filed: 12/05/22 17:56> Eyes General: appearance normal, both eyes and all related structures <ADELINA Kennedy - Last Filed: 12/05/22 17:56> EOM: EOMs intact bilaterally <ADELINA Kennedy - Last Filed: 12/05/22 17:56> Neck Neck: Yes normal visual inspection and Yes no meningeal signs <ADELINA Kennedy Last Filed: 12/05/22 17:56> Resp Effort & Inspection: normal respiratory effort and no respiratory distress <ADELINA Kennedy - Last Filed: 12/05/22 17:56> Auscultation: clear to auscultation bilaterally <Katarina Sotelo PA - Last Filed: 12/05/22 17:56> Cardio Rate: regular rate <Katarina Poulcira PA - Last Filed: 12/05/22 17:56> Heart sounds: S1 normal heart sound present and S2 normal heart sound present <Katarina Sotelo PA - Last Filed: 12/05/22 17:56> GI Inspection: Yes normal to inspection <Katarina Sotelo PA - Last Filed: 12/05/22 17:56> Palpation (GI): Soft to palpation, Tenderness to palpation present (GI) in the RLQ; with no rebound tenderness, no guarding and not rigid <Katarina Sotelo PA - Last Filed: 12/05/22 17:56> General: Yes CVA tenderness on the right <Katarina Sotelo PA - Last Filed: 12/05/22 17:56> Back/Spine/Pelvis Back: CVA tenderness <Katarina Sotelo PA - Last Filed: 12/05/22 17:56> Skin Rashes: no rashes <Katarina Sotelo PA - Last Filed: 12/05/22 17:56> Wounds: no wounds <Katarina Sotelo PA - Last Filed: 12/05/22 17:56> Neuro General: patient oriented x3, tone normal and no meningeal signs <Katarina Sotelo PA - Last Filed: 12/05/22 17:56> Gait exam (Neuro): Normal gait present <Katarina Sotelo PA - Last Filed: 12/05/22 17:56> Extrem General: Yes normal to inspection <Katarina Sotelo PA - Last Filed: 12/05/22 17:56> Course Course Course Narrative: This is a rapid medical exam. For additional HPI, ROS, PE Department fighter. 47-year-old male with recent lithotripsy here with continued right flank pain. Spoke to Urology on-call recommended to come to the ER for further evaluation. Will obtain labs, UA, COVID screen. Vital signs stable. <Alice Eastman NP - Last Filed: 12/05/22 15:11> This is a rapid medical exam. For additional HPI, NELDA WELSH Department fighter. 47-year-old male with recent lithotripsy here with continued right flank pain. Spoke to Urology on-call recommended to come to the ER for further evaluation. Will obtain labs, UA, COVID screen. Vital signs stable. -1600--leukocytosis of 12.5 > Likely reactive from pain. Low suspicion for severe sepsis at this time, no evidence of infection. H&H slightly lower than prior is likely post procedural -renal function WNL. Case discussed with Dr. Shaw who will evaluate patient in the ED after finishes in the OR -UA not infected with RBCs/blood -1755--on re-evaluation patient reports symptoms are improved after 1st round of medications however pain is recurring. -1800--ED care transferred to ADELINA Harris pending recommendations from Dr. Shaw <ADELINA Kennedy - Last Filed: 12/05/22 17:56> Reevaluation(s) Reevaluation #1: Dr. Shaw evaluated patient who recommends DC home w/ pain control he was offered admission however patient didnt want admission. Dr. Shaw recommends Percocet, 30 pills. Educated patient on diagnosis and treatment plan, answered all question, patient verbalizes understanding. At this time patient will be discharged home, advised to return with new or worsening symptoms. Educated on worrisome signs and symptoms and when to return. At this time I feel comfortable discharge home. <ADELINA Almonte - Last Filed: 12/05/22 18:28> Time: 18:23 <ADELINA Almonte - Last Filed: 12/05/22 18:28> Medical Decision Making Medical Decision Making MDM Narrative: 47-year-old male with a past medical history of right mid ureter impacted stone with hydroureteronephrosis diagnosed on 12/03/2022 s/p cystoscopy without full stone removal, presenting to the ED complaining persistent right flank pain radiating to right abdomen x2 days. On exam tachycardic likely from pain, nontoxic appearing, abdomen soft with RLQ tenderness, no rebound or guarding and right CVA tenderness. Concern for persistent renal stone vs pyelo vs UTI. Lower suspicion for appendicitis/diverticulitis Plan: Repeat labs, UA, IVF, pain control, consult Urology <ADELINA Kennedy - Last Filed: 12/05/22 17:56> Differential Diagnosis Differential Diagnoses: The differential diagnosis associated with the presentation includes <ADELINA Kennedy - Last Filed: 12/05/22 17:56> As above <ADELINA Kennedy - Last Filed: 12/05/22 17:56> Admission/Observation Consideration of admission/observation: Escalation of care including admission/observation considered <ADELINA Kennedy - Last Filed: 12/05/22 17:56> Consult Healthcare Provider Management of the patient was discussed with: Translation Director (Urology, Dr. Shaw who will evaluate patient and determine disposition) <ADELINA Kennedy - Last Filed: 12/05/22 17:56> Lab Data MDM Lab Attestation statement: I reviewed the patient's lab results. <ADELINA Kennedy - Last Filed: 12/05/22 17:56> Result Diagrams: 12/05/22 15:38 12/05/22 15:38 <Alice Eastman NP - Last Filed: 12/05/22 15:11> Labs: Lab Results 12/05/22 12/05/22 12/05/22 Range/Units 15:33 15:38 15:38 WBC 12.5 H (4.8-10.8) X10*3/uL RBC 4.53 L (4.60-5.80) X10*6/uL Hgb 13.9 L (14.0-18.0) g/dl Hct 39.8 L (42.0-52.0) % MCV 87.9 (80.0-98.0) fL MCH 30.7 (27.0-33.0) pg MCHC 34.9 (31.0-36.0) g/dl RDW 12.0 (11.0-16.0) % Plt Count 267 D (160-400) X10*3/uL MPV 9.0 L (9.4-12.4) fL Immature Gran % (Auto) 0.3 (0.0-0.4) % Neut % (Auto) 85.5 H (45-73) % Lymph % (Auto) 6.3 L (20-40) % Morrow % (Auto) 7.6 (2-11) % Eos % (Auto) 0.0 (0-4) % Baso % (Auto) 0.3 (0-2) % Lymph # (Auto) 0.8 L (1.2-4.9) X10*3/uL Morrow # (Auto) 1.0 (0.1-1.2) X10*3/uL Eos # (Auto) 0.0 (0.0-0.4) X10*3/uL Baso # (Auto) 0.0 (0.0-0.2) X10*3/uL Abs Immat Gran (auto) 0.04 H (0.00-0.03) X10*3/uL Absolute Neuts (auto) 10.7 H (2.0-8.3) x10*3/uL Absolute Nucleated RBC 0.000 (0.0-0.012) X10*3/uL Nucleated RBC % (auto) 0.0 (0.0-0.2) /100WBC Sodium 135 (135-145) mmol/L Potassium 4.0 (3.3-5.1) mmol/L Chloride 98 (96-108) mmol/L Carbon Dioxide 27 (22-29) mmol/L Anion Gap 14 (12-20) BUN 12 (9-16) mg/dL Creatinine 1.17 (0.5-1.4) mg/dL Estim Creat Clear Calc 58.7 Estimated GFR > 60 Random Glucose 109 (60-115) mg/dL Calcium 9.0 D (8.4-10.2) mg/dL Total Bilirubin 1.0 (0.0-1.0) mg/dL Direct Bilirubin 0.3 (0.0-0.5) mg/dL AST 13 (5-37) U/L ALT 7 (0-40) U/L Alkaline Phosphatase 56 (39-117) U/L Total Protein 6.8 (6.5-8.0) g/dL Albumin 3.9 (3.5-5.0) g/dL Urine Color Urine Appearance Urine pH (5.0-9.0) Ur Specific Gibson (1.005-1.025) Urine Protein (Neg-Trace) mg/dL Urine Glucose (UA) (Negative) mg/dL Urine Ketones (Negative) mg/dL Urine Blood (Negative) Urine Nitrite (Negative) Ur Leukocyte Esterase (Negative) Urine RBC (0-2) /HPF Urine WBC (0-5) /HPF Ur Squamous Epith Cells (0-2) /HPF Urine Bacteria (None Seen) Hyaline Casts (0-2) /LPF COVID-19 ([facility]) Negative (Negative) COVID-19 Clin Com See Note 12/05/22 Range/Units 16:02 WBC (4.8-10.8) X10*3/uL RBC (4.60-5.80) X10*6/uL Hgb (14.0-18.0) g/dl Hct (42.0-52.0) % MCV (80.0-98.0) fL MCH (27.0-33.0) pg MCHC (31.0-36.0) g/dl RDW (11.0-16.0) % Plt Count (160-400) X10*3/uL MPV (9.4-12.4) fL Immature Gran % (Auto) (0.0-0.4) % Neut % (Auto) (45-73) % Lymph % (Auto) (20-40) % Morrow % (Auto) (2-11) % Eos % (Auto) (0-4) % Baso % (Auto) (0-2) % Lymph # (Auto) (1.2-4.9) X10*3/uL Morrow # (Auto) (0.1-1.2) X10*3/uL Eos # (Auto) (0.0-0.4) X10*3/uL Baso # (Auto) (0.0-0.2) X10*3/uL Abs Immat Gran (auto) (0.00-0.03) X10*3/uL Absolute Neuts (auto) (2.0-8.3) x10*3/uL Absolute Nucleated RBC (0.0-0.012) X10*3/uL Nucleated RBC % (auto) (0.0-0.2) /100WBC Sodium (135-145) mmol/L Potassium (3.3-5.1) mmol/L Chloride (96-108) mmol/L Carbon Dioxide (22-29) mmol/L Anion Gap (12-20) BUN (9-16) mg/dL Creatinine (0.5-1.4) mg/dL Estim Creat Clear Calc Estimated GFR Random Glucose (60-115) mg/dL Calcium (8.4-10.2) mg/dL Total Bilirubin (0.0-1.0) mg/dL Direct Bilirubin (0.0-0.5) mg/dL AST (5-37) U/L ALT (0-40) U/L Alkaline Phosphatase (39-117) U/L Total Protein (6.5-8.0) g/dL Albumin (3.5-5.0) g/dL Urine Color BROWN Urine Appearance Cloudy Urine pH 6.0 (5.0-9.0) Ur Specific Gibson 1.025 (1.005-1.025) Urine Protein 100 (2+) H (Neg-Trace) mg/dL Urine Glucose (UA) Negative (Negative) mg/dL Urine Ketones 40 (Negative) mg/dL Urine Blood Large (3+) H (Negative) Urine Nitrite Negative (Negative) Ur Leukocyte Esterase Negative (Negative) Urine RBC >20 H (0-2) /HPF Urine WBC 0-5 (0-5) /HPF Ur Squamous Epith Cells 0-2 (0-2) /HPF Urine Bacteria None Seen (None Seen) Hyaline Casts 0-2 (0-2) /LPF COVID-19 ([facility]) (Negative) COVID-19 Clin Com <Alice Eastman, MULTIFOCAL BUTTON GENERATOR - Last Filed: 12/05/22 15:11> Lab Results 12/05/22 12/05/22 12/05/22 Range/Units 15:33 15:38 15:38 WBC 12.5 H (4.8-10.8) X10*3/uL RBC 4.53 L (4.60-5.80) X10*6/uL Hgb 13.9 L (14.0-18.0) g/dl Hct 39.8 L (42.0-52.0) % MCV 87.9 (80.0-98.0) fL MCH 30.7 (27.0-33.0) pg MCHC 34.9 (31.0-36.0) g/dl RDW 12.0 (11.0-16.0) % Plt Count 267 D (160-400) X10*3/uL MPV 9.0 L (9.4-12.4) fL Immature Gran % (Auto) 0.3 (0.0-0.4) % Neut % (Auto) 85.5 H (45-73) % Lymph % (Auto) 6.3 L (20-40) % Morrow % (Auto) 7.6 (2-11) % Eos % (Auto) 0.0 (0-4) % Baso % (Auto) 0.3 (0-2) % Lymph # (Auto) 0.8 L (1.2-4.9) X10*3/uL Morrow # (Auto) 1.0 (0.1-1.2) X10*3/uL Eos # (Auto) 0.0 (0.0-0.4) X10*3/uL Baso # (Auto) 0.0 (0.0-0.2) X10*3/uL Abs Immat Gran (auto) 0.04 H (0.00-0.03) X10*3/uL Absolute Neuts (auto) 10.7 H (2.0-8.3) x10*3/uL Absolute Nucleated RBC 0.000 (0.0-0.012) X10*3/uL Nucleated RBC % (auto) 0.0 (0.0-0.2) /100WBC Sodium 135 (135-145) mmol/L Potassium 4.0 (3.3-5.1) mmol/L Chloride 98 (96-108) mmol/L Carbon Dioxide 27 (22-29) mmol/L Anion Gap 14 (12-20) BUN 12 (9-16) mg/dL Creatinine 1.17 (0.5-1.4) mg/dL Estim Creat Clear Calc 58.7 Estimated GFR > 60 Random Glucose 109 (60-115) mg/dL Calcium 9.0 D (8.4-10.2) mg/dL Total Bilirubin 1.0 (0.0-1.0) mg/dL Direct Bilirubin 0.3 (0.0-0.5) mg/dL AST 13 (5-37) U/L ALT 7 (0-40) U/L Alkaline Phosphatase 56 (39-117) U/L Total Protein 6.8 (6.5-8.0) g/dL Albumin 3.9 (3.5-5.0) g/dL Urine Color Urine Appearance Urine pH (5.0-9.0) Ur Specific Gibson (1.005-1.025) Urine Protein (Neg-Trace) mg/dL Urine Glucose (UA) (Negative) mg/dL Urine Ketones (Negative) mg/dL Urine Blood (Negative) Urine Nitrite (Negative) Ur Leukocyte Esterase (Negative) Urine RBC (0-2) /HPF Urine WBC (0-5) /HPF Ur Squamous Epith Cells (0-2) /HPF Urine Bacteria (None Seen) Hyaline Casts (0-2) /LPF COVID-19 ([facility]) Negative (Negative) COVID-19 Clin Com See Note 12/05/22 Range/Units 16:02 WBC (4.8-10.8) X10*3/uL RBC (4.60-5.80) X10*6/uL Hgb (14.0-18.0) g/dl Hct (42.0-52.0) % MCV (80.0-98.0) fL MCH (27.0-33.0) pg MCHC (31.0-36.0) g/dl RDW (11.0-16.0) % Plt Count (160-400) X10*3/uL MPV (9.4-12.4) fL Immature Gran % (Auto) (0.0-0.4) % Neut % (Auto) (45-73) % Lymph % (Auto) (20-40) % Morrow % (Auto) (2-11) % Eos % (Auto) (0-4) % Baso % (Auto) (0-2) % Lymph # (Auto) (1.2-4.9) X10*3/uL Morrow # (Auto) (0.1-1.2) X10*3/uL Eos # (Auto) (0.0-0.4) X10*3/uL Baso # (Auto) (0.0-0.2) X10*3/uL Abs Immat Gran (auto) (0.00-0.03) X10*3/uL Absolute Neuts (auto) (2.0-8.3) x10*3/uL Absolute Nucleated RBC (0.0-0.012) X10*3/uL Nucleated RBC % (auto) (0.0-0.2) /100WBC Sodium (135-145) mmol/L Potassium (3.3-5.1) mmol/L Chloride (96-108) mmol/L Carbon Dioxide (22-29) mmol/L Anion Gap (12-20) BUN (9-16) mg/dL Creatinine (0.5-1.4) mg/dL Estim Creat Clear Calc Estimated GFR Random Glucose (60-115) mg/dL Calcium (8.4-10.2) mg/dL Total Bilirubin (0.0-1.0) mg/dL Direct Bilirubin (0.0-0.5) mg/dL AST (5-37) U/L ALT (0-40) U/L Alkaline Phosphatase (39-117) U/L Total Protein (6.5-8.0) g/dL Albumin (3.5-5.0) g/dL Urine Color BROWN Urine Appearance Cloudy Urine pH 6.0 (5.0-9.0) Ur Specific Gibson 1.025 (1.005-1.025) Urine Protein 100 (2+) H (Neg-Trace) mg/dL Urine Glucose (UA) Negative (Negative) mg/dL Urine Ketones 40 (Negative) mg/dL Urine Blood Large (3+) H (Negative) Urine Nitrite Negative (Negative) Ur Leukocyte Esterase Negative (Negative) Urine RBC >20 H (0-2) /HPF Urine WBC 0-5 (0-5) /HPF Ur Squamous Epith Cells 0-2 (0-2) /HPF Urine Bacteria None Seen (None Seen) Hyaline Casts 0-2 (0-2) /LPF COVID-19 ([facility]) (Negative) COVID-19 Clin Com <ADELINA Kennedy - Last Filed: 12/05/22 17:56> Lab Results 12/05/22 12/05/22 12/05/22 Range/Units 15:33 15:38 15:38 WBC 12.5 H (4.8-10.8) X10*3/uL RBC 4.53 L (4.60-5.80) X10*6/uL Hgb 13.9 L (14.0-18.0) g/dl Hct 39.8 L (42.0-52.0) % MCV 87.9 (80.0-98.0) fL MCH 30.7 (27.0-33.0) pg MCHC 34.9 (31.0-36.0) g/dl RDW 12.0 (11.0-16.0) % Plt Count 267 D (160-400) X10*3/uL MPV 9.0 L (9.4-12.4) fL Immature Gran % (Auto) 0.3 (0.0-0.4) % Neut % (Auto) 85.5 H (45-73) % Lymph % (Auto) 6.3 L (20-40) % Morrow % (Auto) 7.6 (2-11) % Eos % (Auto) 0.0 (0-4) % Baso % (Auto) 0.3 (0-2) % Lymph # (Auto) 0.8 L (1.2-4.9) X10*3/uL Morrow # (Auto) 1.0 (0.1-1.2) X10*3/uL Eos # (Auto) 0.0 (0.0-0.4) X10*3/uL Baso # (Auto) 0.0 (0.0-0.2) X10*3/uL Abs Immat Gran (auto) 0.04 H (0.00-0.03) X10*3/uL Absolute Neuts (auto) 10.7 H (2.0-8.3) x10*3/uL Absolute Nucleated RBC 0.000 (0.0-0.012) X10*3/uL Nucleated RBC % (auto) 0.0 (0.0-0.2) /100WBC Sodium 135 (135-145) mmol/L Potassium 4.0 (3.3-5.1) mmol/L Chloride 98 (96-108) mmol/L Carbon Dioxide 27 (22-29) mmol/L Anion Gap 14 (12-20) BUN 12 (9-16) mg/dL Creatinine 1.17 (0.5-1.4) mg/dL Estim Creat Clear Calc 58.7 Estimated GFR > 60 Random Glucose 109 (60-115) mg/dL Calcium 9.0 D (8.4-10.2) mg/dL Total Bilirubin 1.0 (0.0-1.0) mg/dL Direct Bilirubin 0.3 (0.0-0.5) mg/dL AST 13 (5-37) U/L ALT 7 (0-40) U/L Alkaline Phosphatase 56 (39-117) U/L Total Protein 6.8 (6.5-8.0) g/dL Albumin 3.9 (3.5-5.0) g/dL Urine Color Urine Appearance Urine pH (5.0-9.0) Ur Specific Gibson (1.005-1.025) Urine Protein (Neg-Trace) mg/dL Urine Glucose (UA) (Negative) mg/dL Urine Ketones (Negative) mg/dL Urine Blood (Negative) Urine Nitrite (Negative) Ur Leukocyte Esterase (Negative) Urine RBC (0-2) /HPF Urine WBC (0-5) /HPF Ur Squamous Epith Cells (0-2) /HPF Urine Bacteria (None Seen) Hyaline Casts (0-2) /LPF COVID-19 ([facility]) Negative (Negative) COVID-19 Clin Com See Note 12/05/22 Range/Units 16:02 WBC (4.8-10.8) X10*3/uL RBC (4.60-5.80) X10*6/uL Hgb (14.0-18.0) g/dl Hct (42.0-52.0) % MCV (80.0-98.0) fL MCH (27.0-33.0) pg MCHC (31.0-36.0) g/dl RDW (11.0-16.0) % Plt Count (160-400) X10*3/uL MPV (9.4-12.4) fL Immature Gran % (Auto) (0.0-0.4) % Neut % (Auto) (45-73) % Lymph % (Auto) (20-40) % Morrow % (Auto) (2-11) % Eos % (Auto) (0-4) % Baso % (Auto) (0-2) % Lymph # (Auto) (1.2-4.9) X10*3/uL Morrow # (Auto) (0.1-1.2) X10*3/uL Eos # (Auto) (0.0-0.4) X10*3/uL Baso # (Auto) (0.0-0.2) X10*3/uL Abs Immat Gran (auto) (0.00-0.03) X10*3/uL Absolute Neuts (auto) (2.0-8.3) x10*3/uL Absolute Nucleated RBC (0.0-0.012) X10*3/uL Nucleated RBC % (auto) (0.0-0.2) /100WBC Sodium (135-145) mmol/L Potassium (3.3-5.1) mmol/L Chloride (96-108) mmol/L Carbon Dioxide (22-29) mmol/L Anion Gap (12-20) BUN (9-16) mg/dL Creatinine (0.5-1.4) mg/dL Estim Creat Clear Calc Estimated GFR Random Glucose (60-115) mg/dL Calcium (8.4-10.2) mg/dL Total Bilirubin (0.0-1.0) mg/dL Direct Bilirubin (0.0-0.5) mg/dL AST (5-37) U/L ALT (0-40) U/L Alkaline Phosphatase (39-117) U/L Total Protein (6.5-8.0) g/dL Albumin (3.5-5.0) g/dL Urine Color BROWN Urine Appearance Cloudy Urine pH 6.0 (5.0-9.0) Ur Specific Gibson 1.025 (1.005-1.025) Urine Protein 100 (2+) H (Neg-Trace) mg/dL Urine Glucose (UA) Negative (Negative) mg/dL Urine Ketones 40 (Negative) mg/dL Urine Blood Large (3+) H (Negative) Urine Nitrite Negative (Negative) Ur Leukocyte Esterase Negative (Negative) Urine RBC >20 H (0-2) /HPF Urine WBC 0-5 (0-5) /HPF Ur Squamous Epith Cells 0-2 (0-2) /HPF Urine Bacteria None Seen (None Seen) Hyaline Casts 0-2 (0-2) /LPF COVID-19 ([facility]) (Negative) COVID-19 Clin Com <ADELINA Almonte - Last Filed: 12/05/22 18:28> Radiology Impression Discussion of test interpretation with radiology: I have reviewed the radiologist's reading. <ADELINA Kennedy - Last Filed: 12/05/22 17:56> Independent Historian Clinical information obtained from an independent historian. History obtained from or confirmed by: Parent <ADELINA Kennedy - Last Filed: 12/05/22 17:56> External Record Review External record reviewed: Inpatient record, Office record and Prior outpatient labs <ADELINA Kennedy - Last Filed: 12/05/22 17:56> Prescription Management I considered prescription management with: Pain Medication and Antibiotic <ADELINA Kennedy - Last Filed: 12/05/22 17:56> Medications Administered Discontinued Medications Generic Name Dose Route Start Last Admin Trade Name Freq PRN Reason Stop Dose Admin Sodium Chloride 1,000 mls @ 999 mls/hr 12/05/22 16:00 12/05/22 16:16 Ns IV 12/05/22 17:00 999 mls/hr .Q1H1M BHARGAVI Administration Ketorolac Tromethamine 15 mg 12/05/22 15:52 12/05/22 16:16 Ketorolac Tromethamine 15 Mg/Ml Vial IVPUSH 12/05/22 15:53 15 mg ONCE ONE Administration Morphine Sulfate 2 mg 12/05/22 15:56 12/05/22 16:15 Morphine Sulfate 2 Mg/Ml Cartridge IVPUSH 12/05/22 15:57 2 mg ONCE ONE Administration Protocol <Alice Eastman NP - Last Filed: 12/05/22 15:11> Medications Administered Discontinued Medications Generic Name Dose Route Start Last Admin Trade Name Freq PRN Reason Stop Dose Admin Sodium Chloride 1,000 mls @ 999 mls/hr 12/05/22 16:00 12/05/22 16:16 Ns IV 12/05/22 17:00 999 mls/hr .Q1H1M BHARGAVI Administration Ketorolac Tromethamine 15 mg 12/05/22 15:52 12/05/22 16:16 Ketorolac Tromethamine 15 Mg/Ml Vial IVPUSH 12/05/22 15:53 15 mg ONCE ONE Administration Morphine Sulfate 2 mg 12/05/22 15:56 12/05/22 16:15 Morphine Sulfate 2 Mg/Ml Cartridge IVPUSH 12/05/22 15:57 2 mg ONCE ONE Administration Protocol <ADELINA Kennedy - Last Filed: 12/05/22 17:56> Medications Administered Discontinued Medications Generic Name Dose Route Start Last Admin Trade Name Aspen PRN Reason Stop Dose Admin Sodium Chloride 1,000 mls @ 999 mls/hr 12/05/22 16:00 12/05/22 16:16 Ns IV 12/05/22 17:00 999 mls/hr .Q1H1M BHARGAVI Administration Ketorolac Tromethamine 15 mg 12/05/22 15:52 12/05/22 16:16 Ketorolac Tromethamine 15 Mg/Ml Vial IVPUSH 12/05/22 15:53 15 mg ONCE ONE Administration Morphine Sulfate 2 mg 12/05/22 15:56 12/05/22 16:15 Morphine Sulfate 2 Mg/Ml Cartridge IVPUSH 12/05/22 15:57 2 mg ONCE ONE Administration Protocol <ADELINA Almonte - Last Filed: 12/05/22 18:28> Critical Care Time Critical Care Time Critical Care Time: No <ADELINA Almonte - Last Filed: 12/05/22 18:28> Discharge Plan Discharge Clinical Impression: Right ureteral calculus <Alice Eastman NP - Last Filed: 12/05/22 15:11> Patient Disposition: Still a Patient <Alice Eastman NP - Last Filed: 12/05/22 15:11> Instructions: Ureteral Stones (ED) <Alice Eastman NP - Last Filed: 12/05/22 15:11> Additional Instructions: Take your medications as prescribed. If you were prescribed antibiotics today, it is important that you take your medication to their entirety, do not skip any doses, do not finish them early. Follow-up with your primary care provider this week. Return to the emergency department with new or worsening symptoms. Such as fevers, chills, chest pain, shortness of breath, nausea, vomiting, dizziness, headache, vision changes, lethargy In case of emergency call 911 <Alice Eastman NP - Last Filed: 12/05/22 15:11> Prescriptions: New oxycodone-acetaminophen [Percocet] 5-325 mg tablet 1 tab PO Q8H PRN (Reason: pain) Qty: 30 0RF Rx Instructions: Partial Fill upon patient request. Patient re-presented to emergency department; requested per specialist No Action oxycodone-acetaminophen 5-325 mg tablet 1 tab PO Q4H PRN (Reason: pain (scale score 4-6)) 7 Days Qty: 14 0RF Rx Instructions: Partial Fill upon patient request. levofloxacin 500 mg tablet 500 mg PO DAILY Qty: 7 0RF <Alice Eastman NP - Last Filed: 12/05/22 15:11> Referrals: [facility] [Provider Group] - 1 day <Alice Eastman NP - Last Filed: 12/05/22 15:11>
[2022-12-05 15:43] LABS: MANUAL DIFF FLAG NO
[2022-12-05 15:45] LABS: Basophils Percent Auto 0.3 % (0-2); Hematocrit 39.8 % (42.0-52.0); Hemoglobin 13.9 g/dl (14.0-18.0); Imm Gran Abs Auto 0.04 X10*3/uL (0.00-0.03); Imm Gran Pct Auto 0.3 % (0.0-0.4); Lymphocytes Absolute Auto 0.8 X10*3/uL (1.2-4.9); Lymphocytes Percent Auto 6.3 % (20-40); Mean Corpuscular HGB Conc 34.9 g/dl (31.0-36.0); Mean Corpuscular Hemoglobin 30.7 pg (27.0-33.0); Mean Corpuscular Volume 87.9 fL (80.0-98.0); Monocytes Percent Auto 7.6 % (2-11); Neutrophils Absolute Auto 10.7 x10*3/uL (2.0-8.3); Neutrophils Percent Auto 85.5 % (45-73); Platelet Count 267 X10*3/uL (160-400); Red Blood Count 4.53 X10*6/uL (4.60-5.80); White Blood Count 12.5 X10*3/uL (4.8-10.8)
[2022-12-05 16:00] VITALS: BP 122/85; PULSE 91; RESP 16; TEMP 37.4; O2SAT 100
[2022-12-05 16:04] LABS: COVID-19 Test Negative (Negative); IDNOW Serial# 55D5AD1C
[2022-12-05 16:08] LABS: Alanine Aminotransferase 7 U/L (0-40); Albumin Level 3.9 g/dL (3.5-5.0); Alkaline Phosphatase 56 U/L (39-117); Anion Gap 14 (12-20); Aspartate Amino Transferase 13 U/L (5-37); Bilirubin Direct 0.3 mg/dL (0.0-0.5); Blood Urea Nitrogen 12 mg/dL (9-16); Carbon Dioxide 27 mmol/L (22-29); Chloride 98 mmol/L (96-108); Creatinine Clr Calc Pharmacy 58.7; Estimated Glomerular Filt Rate > 60; Glucose Random 109 mg/dL (60-115); Sodium 135 mmol/L (135-145); Total Protein 6.8 g/dL (6.5-8.0)
[2022-12-05] MEDS: Morphine Sulfate 2 MG/ML CARTRIDGE IVPUSH (16:15)
[2022-12-05] MEDS: Ketorolac Tromethamine 15 MG/ML VIAL IVPUSH ×2 (16:16→18:20)
[2022-12-05] MEDS: 0.9 % Sodium Chloride 1,000 ML 999 ML IV (16:16)
[2022-12-05 16:19] LABS: Glucose Urine UA Negative (Negative); Leukocyte Esterase Urine Negative (Negative); Nitrite Urine Negative (Negative); Specific Gravity - Urine 1.025 (1.005-1.025); UMIC TRIGGER UACC YES; Urine Blood Large (3+) (Negative); Urine Ketones 40 mg/dL (Negative); Urine Protein 100 (2+) mg/dL (Neg-Trace)
[2022-12-05 16:20] LABS: Appearance Urine Cloudy; Color Urine BROWN
[2022-12-05 16:22] LABS: Bacteria Urine None Seen (None Seen); Hyaline Casts Urine 0-2 /LPF (0-2); RBC Urine >20 /HPF (0-2); Squamous Epithelial Cell Urine 0-2 /HPF (0-2); UACC Culture Trigger YES; WBC Urine 0-5 /HPF (0-5)
== END 2022-12-05 19:00 | disposition home or self-care (01) ==
PROVIDERS: Nurse Practitioner Family; Emergency Provider Emergency Medicine
DX: N20.1 Calculus of ureter (principal); Z20.822 Contact with and (suspected) exposure to COVID-19; Z20.828 Contact with and (suspected) exposure to other viral communicable diseases; Z79.899 Other long term (current) drug therapy
CPT/HCPCS: 80048; 80076; 81001; 85025; 87635; 96374; 96375; 96376; 99284; J1885; J2270

== ENCOUNTER 2022-12-09 12:50 | Day surgery (SDC) | payer OTHER, SELFPAY ==
--- NOTE | ~2022-12-09 | IR_ITS ---
EXAMINATION: FLUOROSCOPY NEPHROSTOGRAM AND NEPHROSTOMY CATHETER INSERTION CLINICAL INFORMATION: Right obstructive hydronephrosis secondary to a 1.2 cm mid ureteral stone. COMPARISON: None. TECHNIQUE: Following explaining ultrasound and fluoroscopy-guided placement of right nephrostomy catheter procedure, benefits and risks, a written consent was obtained. Patient was placed prone on fluoroscopy table and preliminary ultrasound imaging was obtained. An optimal site was selected and marked. The marked site was cleaned and draped with 2% chlorhexidine solution. Sterile drape was placed over the cleaned area. 1% lidocaine was injected at the puncture site. Following a small skin incision, a 20-gauge Chiba needle was inserted under ultrasound and fluoroscopy guidance into the right kidney pelvis. After removing the stylet, there was andrés urine observed. A thin guidewire was then advanced under fluoroscopy and placed in the proximal ureter and needle withdrawn. A 5 Venezuelan dilator with sheath was advanced over the guidewire and placed in the pelvis. The dilator was removed and the sheath was advanced into the proximal ureter. A 0.035 J-wire was advanced through the sheath and placed in the proximal ureter and the sheath removed. The tract was dilated to 6 Venezuelan over the wire. An 8.5 Venezuelan APD/nephrostomy catheter was placed over the guidewire and left in the pelvis. The guidewire was removed and 5 mL of nonionic contrast was injected opacifying the kidney pelvis and the proximal aorta. Images were obtained during the exam. The catheter was then stitched to the skin with 3-0 nylon nonabsorbable sutures. Sterile dressing was applied postprocedure. Catheter was then connected via a connecting cannula to a drainage bag. Instructions were given to the patient by the bedside for emptying the bag when patient was at home. Sterile gown, mask, catheter, drape, gloves and sterile equipment was utilized during the exam. Conscious sedation was utilized during the exam and patient monitored for 21 minutes by IR nursing and radiologist. FINDINGS: Images obtained during fluoroscopy reveals contrast opacifying the kidney pelvis and the proximal aorta and abruptly ends where a known mid ureteral stone was seen on CT. The 8.5 Venezuelan nephrostomy catheter pigtail lies within the kidney pelvis in good position. FLUOROSCOPY TIME: 1.0 minutes. DOSE AREA PRODUCT: 72 cGy-cm2. IR/IR nephrostomy IMPRESSION: Successful ultrasound fluoroscopy-guided placement of right nephrostomy catheter with its tip in the pelvis.
[2022-12-09 13:00] VITALS: BMI 17.4
[2022-12-09] MEDS: Lidocaine HCl 1 % MPF 5 ML VIAL 10 ML SUBCUT (15:52)
[2022-12-09 15:58] VITALS: BP 123/86; PULSE 73; RESP 16; TEMP 36.9; O2SAT 97
[2022-12-09 16:13] VITALS: BP 126/81; PULSE 68; RESP 14; O2SAT 98
[2022-12-09 16:28] VITALS: BP 126/82; PULSE 75; RESP 16; O2SAT 99
[2022-12-09 16:43] VITALS: BP 123/82; PULSE 63; RESP 16; O2SAT 99
[2022-12-09 17:20] VITALS: PULSE 80; RESP 18; O2SAT 100
[2022-12-09 17:50] VITALS: BP 120/87; PULSE 84; RESP 18; O2SAT 100
== END 2022-12-09 18:10 | disposition home or self-care (01) ==
PROVIDERS: Visit Provider Urology
DX: N13.2 Hydronephrosis with renal and ureteral calculous obstruction (principal); N13.9 Obstructive and reflux uropathy, unspecified
CPT/HCPCS: 50432; 99152; 99153; C1729; C1894; J2250; J3010; Q9967

== ENCOUNTER 2022-12-15 12:42 | Day surgery (SDC) | payer OTHER, SELFPAY ==
[2022-12-15] VITALS (7 sets, daily range): BP systolic 115–133; BP diastolic 77–90; PULSE 52–67; RESP 14–18; TEMP 36.2–36.4; O2SAT 96–100; BMI 17.4
--- NOTE | ~2022-12-15 | FL_ITS ---
EXAMINATION: XR FLUOROSCOPY WITH IMAGES CLINICAL INFORMATION: Right hydronephrosis and hydroureter, right ureteral calculus. Cystoscopy, stent. COMPARISON: CT abdomen and pelvis 12/03/2022, right nephrostomy insertion 12/09/2022. TECHNIQUE: Fluoroscopy Supervised By: Dr. David Shaw. Fluoroscopy Time: 4.2 minutes. Cumulative Dose: 34.18 mGy. Images: 10. FINDINGS: There is right percutaneous nephrostomy catheter is seen. There is right urinary tract contrast with mild hydronephrosis and moderate hydroureter. Guidewire seen through the nephrostomy extending to the bladder. FL/FL guidance in OR IMPRESSION: Fluoroscopy for urologic procedures.
--- NOTE | 2022-12-15 15:06 | HO.ANESPROP2 ---
HPI - Anesthesia Eval Consult details Narrative: cysto PMFSH Active Problems Active Problems: All Active Problems (Updated 12/06/22 @ 00:01 by Gabriel Dowling) Nephrolithiasis (Acute) Obstructed, uropathy (Acute) Hydroureteronephrosis (Acute) Family History Family history of problems with anesthesia: No Surgical History History of Problems with Anesthesia: No Social History Social History Alcohol intake: never Patient Tobacco Use Status: Never used Tobacco Use of substances other than those prescribed or required for medical reasons: No Advance Directives: No Advance Directives Information Provided: Yes Meds Allergies Allergy/AdvReac Type Severity Reaction Status Date / Time No Known Allergies Allergy Verified 11/29/21 11:58 Exam Exam Date and Time: December 15, 2022 1506 Height,Weight and Vital Signs: Height 5 ft 11 in Weight 56.699 kg Last Vital Signs Temp 97.3 F 12/15/22 13:51 Pulse 67 12/15/22 13:51 Resp 18 12/15/22 13:51 BP 128/85 12/15/22 13:51 Pulse Ox 96 12/15/22 13:51 O2 Del Method 12/15/22 13:51 Airway Mallampati Class: I TM Dist: >3cm Neck ROM: Full Heart: ok Lungs: ok Assessment and Plan Final Anesthetic Review Family History of Problems with Anesthesia: No History of Problems with Anesthesia: No NPO: Yes ASA Class: II Final Preanesthetic Review: No Changes in Pt Med Stat, Meds/Allgs Chart Reviewed, Consent Obtained/Reviewed and Anes Risks/Benef Reviewed Patient Risk: Low Procedure Risk: Low Anesthetic Plan Anesthetic Plan: GA and Agree w/ Assess. and Plan Disposition: Standard PACU
--- NOTE | 2022-12-15 15:09 | MHC.SHP ---
Pre-Procedural Eval Section A Date of Service: 12/15/22 The patient is an INPATIENT: No Changes since office visit: No Cold of Flu in the past 2 weeks, No New Medical Problems, No Changes in Medication and No Patient answered all questions The History & Physical has been completed within 30 days and I have reviewed it.: Yes Section B Chief Complaint: Calculus of ureter Details of Present Illness: right antegrade, right flexible antegrade ureteroscopy with laser lithotripsy, stone basketing, stent placed Allergies: Allergies Allergy/AdvReac Type Severity Reaction Status Date / Time No Known Allergies Allergy Verified 11/29/21 11:58 Plan I have reviewed the history and physical and performed a pertinent physical examination on my patient. No changes have occurred unless specified. Time Spent With Patient Time: Total time managing care of this patient today ____ minutes.
--- NOTE | 2022-12-15 16:37 | W.PM.OPN ---
Operative Note Operative Note Date of Service: 12/15/22 Narrative: PreOperative Diagnosis: right mid ureteric stone imbedded with hydroureteronephrosis Post Operative Diagnosis: as above Procedure: - right antegrade - dilatation of access PCN tract on right side - right flexible percutaneous ureteroscopy, laser lithotripsy - this procedure was a modified form of PCNL - cystoscopy with right stent placement Surgeon: Dr David Shaw Anesthesia: General Indications for procedure: 1.5 cm embedded mid ureteric stone with proximal hydroureteronephrosis and delayed nephrogram. Had undergone attempt at ureteroscopy from below. Had been unable to maintain access onto the stone due to chronic changes in anatomy. Percutaneous nephrostomy tube had been placed to decompress right kidney. Here today to try to address stone coming in antegrade fashion with dilatation of PCN tract and percutaneous flexible ureteroscopy in an antegrade fashion. Procedure: After informed consent was verified patient was brought to the operating placed in supine position. Anesthesia was administered per protocol. Patient was placed in modified dorsal lithotomy position and prepped and draped in a sterile fashion. Safety pause time-out and side of surgery confirmed. Antibiotics confirmed. The right PCN tube had been exposed on his flank. An antegrade nephrostogram was performed. Filling defects seen at mid ureter and no passage of dye seen into distal ureter. Angled Glidewire was placed through PCN tube and navigated down on to stone. The PCN tube was removed. A 4 Italian open-ended access sheath was then placed. The Glidewire was exchanged for a Sensor wire. The PCN tract was then incised with a 15 blade at the level of the skin and dilated using the internal cannula of the ureteric sheath and the ureter it access sheath was placed into the renal pelvis from above Under fluoroscopic guidance. The internal cannula was removed. The flexible ureteral scope was placed alongside the wire and navigated into the proximal portion of the ureter. The Sensor wire was removed. The flexible ureteral scope was advanced down the ureter in an antegrade fashion until the stone was encountered. This was a large stone. A holmium laser fiber was placed. The stone was broken into small pieces. There was stone was embedded into the ureter garcia. Eventually after an opening was created through the stone and there was only remnant stone remaining on the wall of the ureter decision was made to place a Glidewire through the stone debris to try to advance into the bladder. This was achieved with a Glidewire running from the right PCN access point down to the bladder. The flexible ureteral scope was removed. The access sheath had worked its way back to the skin level and was removed. The 4 Italian open-ended catheter was then placed over Glidewire into the bladder. Cystoscopy was then performed. The open-ended catheter was seen lying within the bladder. The end was grasped and removed to the penis. A Sensor guidewire was then placed through the open-ended catheter and emerged from the right PCN tract. The open-ended catheter and the Sensor wire were backed into the kidney and seen to coil within the renal pelvis under fluoroscopy. The open-ended catheter was then removed via the penis. The rigid cystoscope was backloaded over the wire and advanced into the bladder. A 6 Italian by 30 cm double-J stent was placed into the renal pelvis and bladder under a combination of fluoroscopy and direct visualization. The bladder was emptied. dressing was placed on the right PCN access point. The patient tolerated the procedure well and was extubated in the operating room, and transferred in stable condition to the recovery area. Pathology: None Drains: 6 Italian by 30 cm double-J stent right side
== END 2022-12-15 18:09 | disposition home or self-care (01) ==
PROVIDERS: Visit Provider Urology
PROC: (CPT 50080; principal; 2022-12-15 14:20)
DX: N13.2 Hydronephrosis with renal and ureteral calculous obstruction (principal); N13.30 Unspecified hydronephrosis
CPT/HCPCS: 50080; C1758; C1769; C2617; J1885; J1956; J2405; J3010; Q9967

== ENCOUNTER 2022-12-29 12:57 | Day surgery (SDC) | payer OTHER, SELFPAY ==
--- NOTE | ~2022-12-29 | FL_ITS ---
EXAMINATION: XR FLUOROSCOPY WITH IMAGES CLINICAL INFORMATION: Right obstructive hydrocephalus with a nephrostomy catheter. COMPARISON: None. TECHNIQUE: Fluoroscopy Supervised By: Juan M Hernandez MD Fluoroscopy Time: 41.7 seconds. Cumulative Dose: 5.88 mGy. FINDINGS: 2 digital images obtained during right retrograde pyelogram reveals contrast opacifying mid and distal ureter. There is likely focal narrowing in the mid segment. There is a guidewire traversing the segment proximally. Subsequent digital fluoroscopy images reveal contrast opacifying the dilated pelvicalyceal system and proximal ureter. Narrowing involving the mid to distal segment where a stone was seen on the previous nephrostomy catheter insertion 12/10/2022. Eventually there is a guidewire seen traversing through the nephrostomy catheter. FL/FL guidance in OR IMPRESSION: Fluoroscopy guidance was given to the referring physician during urology procedure.
[2022-12-29 13:10] VITALS: BMI 23.6
[2022-12-29 13:25] VITALS: BP 115/89; PULSE 85; RESP 16; TEMP 36.6; O2SAT 95
[2022-12-29] MEDS: Lactated Ringers 1,000 ML 50 ML IVCONT (13:41)
--- NOTE | 2022-12-29 13:56 | MHC.SHP ---
Pre-Procedural Eval Section A Date of Service: 12/29/22 The patient is an INPATIENT: No Changes since office visit: No Cold of Flu in the past 2 weeks, No New Medical Problems, No Changes in Medication and No Patient answered all questions The History & Physical has been completed within 30 days and I have reviewed it.: Yes Section B Chief Complaint: Calculus of kidney Details of Present Illness: obstructing right mid ureteric stone. Prior antegrade ureteroscopy with stone lasering and stent placement. Here for completion procedure. Cystoscopy, right stent removal, right rigid ureteroscopy laser lithotripsy stone basketing and possible stent. Relevant Family History (Specify if Yes): No Relevant Social History: None Present Medications: see Short Stay Collaborative assessment Medical History: No relevant PMH History of Previous Operations: Relevant previous surgery/procedure and date(s) Allergies: Allergies Allergy/AdvReac Type Severity Reaction Status Date / Time No Known Allergies Allergy Verified 11/29/21 11:58 Review of Systems Sugical H&P ROS: Negative: Constitution, Cardiovascular, Respiratory, Neurological, Psychiatric, Hem-Onc, Allergic/Immunologic, Gastrointestinal, Genitourinary, Musculoskeletal, Integumentary, Endocrine and Eyes/Ears/Nose/Throat Exam Surgical H&P Exam: Normal: HEENT, Normal: Heart, Normal: Lungs, Normal: Extremities, Normal: Abdomen, Normal: Skin and Normal: Neurological Plan Diagnosis/Plan: Unchanged ( Cystoscopy, right retrograde, right ureteroscopy with laser lithotripsy, stone basketing, possible stent) I have reviewed the history and physical and performed a pertinent physical examination on my patient. No changes have occurred unless specified. Time Spent With Patient Time: Total time managing care of this patient today ____ minutes.
--- NOTE | 2022-12-29 14:12 | HO.ANESPROP2 ---
HPI - Anesthesia Eval Consult details Narrative: cysto, retro, laser PMFSH Active Problems Active Problems: All Active Problems (Updated 12/29/22 @ 13:20 by Nicole Leonardo RN) Obstructed, uropathy (Acute) Hydroureteronephrosis (Acute) Nephrolithiasis (Acute) Past Medical History Medical History (Updated 12/29/22 @ 13:20 by Nicole Leonardo RN) History of blood transfusion Family History Family history of problems with anesthesia: No Surgical History Surgical History (Updated 12/29/22 @ 13:10 by Nicole Leonardo RN) History of abdominal surgery History of arthroplasty of right shoulder History of Problems with Anesthesia: No Social History Social History Alcohol intake: never Patient Tobacco Use Status: Never used Tobacco Meds Allergies Allergy/AdvReac Type Severity Reaction Status Date / Time No Known Allergies Allergy Verified 11/29/21 11:58 Active Medications: Current Medications Lactated Ringer's (Lr) 1,000 mls @ 50 mls/hr IVCONT .Q20H BHARGAVI Last Admin: 12/29/22 13:41 Dose: 50 mls/hr Exam Exam Date and Time: December 29, 2022 1412 Height,Weight and Vital Signs: Height 5 ft 1 in Weight 56.699 kg Last Vital Signs Temp 97.9 F 12/29/22 13:25 Pulse 85 12/29/22 13:25 Resp 16 12/29/22 13:25 BP 115/89 12/29/22 13:25 Pulse Ox 95 12/29/22 13:25 O2 Del Method 12/29/22 13:25 Airway Mallampati Class: I TM Dist: >3cm Neck ROM: Full Heart: ok Lungs: ok Assessment and Plan Assessment Anesthesia Assessment: Anesthesia Plan Discussed and Chart Reviewed Final Anesthetic Review Family History of Problems with Anesthesia: No History of Problems with Anesthesia: No NPO: Yes ASA Class: II Final Preanesthetic Review: No Changes in Pt Med Stat, Meds/Allgs Chart Reviewed, Consent Obtained/Reviewed and Anes Risks/Benef Reviewed Patient Risk: Low Procedure Risk: Low Anesthetic Plan Anesthetic Plan: GA and Agree w/ Assess. and Plan Disposition: Standard PACU
--- NOTE | 2022-12-29 14:55 | P.OP_ITS ---
Operative Note Operative Note Date of Service: 12/29/22 Narrative: PreOperative Diagnosis: right mid ureteric stone with ureter stricture and indwelling stent Post Operative Diagnosis: above Procedure: - cystoscopy, removal right indwelling stent - right retrograde - right ureteroscopy,stone basketing - right stent placement Surgeon: Dr David Shaw Anesthesia: General Indications for procedure: had initial presentation with obstructing right mid ureter to impacted large stone 1.5 cm. Underwent initial ureteroscopy but was unable to access stone. Underwent antegrade ureteroscopy with laser lithotripsy and stone was broken into small pieces and partially removed. Here for completion procedure. Stent indwelling. Procedure: After informed consent was verified patient was brought to the operating placed in supine position. Anesthesia was administered per protocol. Patient was placed in modified dorsal lithotomy position and prepped and draped in a sterile fashion. Safety pause time-out and side of surgery confirmed. Antibiotics confirmed. 22 Kuwaiti cystoscope was inserted per urethra. Bladder was normal in its entirety. Both ureteric orifices were in normal position. Stent emerging from right ureter. Sensor guidewire placed alongside indwelling stent. The cystoscope was jason shanon and replaced. The stent was grasped and removed. The cystoscope was placed The right ureteric orifice was cannulated and a retrograde examination was performed. narrowing could be seen at the mid ureter consistent with the prior area of stone impaction and potential ureter extracted.. The ureteric access sheath was placed and the inner cannula with access wire removed. The digital flexible ureteral scope was placed. Stone debris was encountered at the impact site. This was knocked free from the ball. Using the 0 tip basket stone fragments were removed. It appeared that there was no other significant pieces of stone. The sheath was removed leaving the indwelling Sensor guidewire. The rigid cystoscope was backloaded over the wire and advanced into the bladder. A 7 Kuwaiti by 28 cm double-J stent was placed into the renal pelvis and bladder under a combination of fluoroscopy and direct visualization. The bladder was emptied. The patient tolerated the procedure well and was extubated in the operating room, and transferred in stable condition to the recovery area. Stent will be left for 4 weeks Pathology: stone Drains: stent as above
[2022-12-29 15:06] VITALS: BP 106/80; PULSE 83; RESP 16; TEMP 36.6; O2SAT 98
[2022-12-29 15:11] VITALS: BP 107/79; PULSE 74; RESP 16; O2SAT 99
[2022-12-29 15:16] VITALS: BP 105/78; PULSE 72; RESP 16; O2SAT 99
[2022-12-29 15:21] VITALS: BP 103/78; PULSE 73; RESP 16; O2SAT 99
[2022-12-29 15:36] VITALS: BP 121/81; PULSE 78; RESP 16; TEMP 36.2; O2SAT 100
[2023-01-06 12:08] LABS: Stone Source KIDNEY STONE
== END 2022-12-29 15:57 | disposition home or self-care (01) ==
PROVIDERS: Visit Provider Urology
PROC: (CPT 52352; principal; 2022-12-29 15:00)
DX: N20.1 Calculus of ureter (principal); N13.9 Obstructive and reflux uropathy, unspecified
CPT/HCPCS: 52352; 52332; 82365; 88300; C1758; C1769; C2617; J1956; J2405; J3010; Q9967

== ENCOUNTER → 2023-01-27 12:59 | Outpatient (BNVA) | payer OTHER, SELFPAY | PROVIDERS: Visit Provider Urology | DX: N13.9 Obstructive and reflux uropathy, unspecified (principal); N20.0 Calculus of kidney | CPT/HCPCS: 52310 ==

== ENCOUNTER 2023-04-27 15:08 | Outpatient (REF) | payer OTHER, SELFPAY ==
--- NOTE | ~2023-04-27 | US_ITS ---
EXAMINATION: US RETROPERITONEAL LIMITED (RENAL ONLY) CLINICAL INFORMATION: Unspecified hydronephrosis. COMPARISON: CT abdomen and pelvis 12/03/2022. TECHNIQUE: Real-time imaging of the kidneys. FINDINGS: RIGHT KIDNEY: 10.7 x 4.0 x 4.6 cm (SAG x AP x TRV). The kidney is normal in size, contour, and echogenicity. Renal cortical thickness is normal. No focal parenchymal lesions. Cluster of calculi in the lower pole largest measuring 1.3 cm. Mild calyectasis, decreased compared to 12/03/2022 without evidence of pelviectasis. LEFT KIDNEY: 11.7 x 4.1 x 5.8 cm (SAG x AP x TRV). The kidney is normal in size, contour, and echogenicity. Renal cortical thickness is normal. No hydronephrosis. Nonobstructive calculi in the lower pole measuring up to 0.2 cm. There is a 1.8 x 1.6 x 1.8 cm complex cyst in the lower pole with thickened wall and peripheral septations, not significantly changed in size compared to CT from 12/03/2022. US/US renal BI IMPRESSION: 1. Bilateral nephrolithiasis. 2. Mild right calyectasis, decreased compared to 12/03/2022 without evidence of pelviectasis. 3. Complex cyst in the lower pole of the left kidney, not significantly changed in size compared to CT from 12/03/2022. Although stability is reassuring, in view of multiple septations as well as irregularity/thickened borders, further characterization with an MRI renal mass protocol with and without IV contrast is recommended as clinically warranted.
== END 2023-04-27 15:09 | disposition home or self-care (01) ==
LOC: HO.HMGCX 15:08
PROVIDERS: Visit Provider Urology
DX: N13.30 Unspecified hydronephrosis (principal)
CPT/HCPCS: 76775

== ENCOUNTER → 2023-05-08 09:34 | Outpatient (BNVA) | payer OTHER, SELFPAY | PROVIDERS: Visit Provider Urology ==

== ENCOUNTER 2023-10-29 07:46 | Outpatient (REF) | payer OTHER, SELFPAY ==
--- NOTE | ~2023-10-29 | CT_ITS ---
EXAMINATION: CT ABDOMEN WITHOUT CONTRAST CLINICAL INFORMATION: Renal calculus. COMPARISON: CT abdomen and pelvis dated 12/03/2022. TECHNIQUE: Contiguous axial thin section helical images of the abdomen were performed without contrast. The data set was reformatted in the coronal and sagittal planes and reviewed on an independent workstation. This CT examination was performed using dose optimization techniques as appropriate, variously including the following: *Automated exposure control *Adjustment of mA and/or kV according to patient size (this includes techniques or standardized protocols for targeted exams where dose is matched to indication/reason for exam; i.e. extremities or head) *Use of iterative reconstruction technique DLP: 120 mGy-cm FINDINGS: LUNG BASES: The visualized lung bases are unremarkable. LIVER, GALLBLADDER, AND BILIARY TREE: The liver is normal in size, shape, and attenuation. There is a Ricardo's lobe configuration. No focal hepatic lesion or biliary ductal dilatation is present. The gallbladder is unremarkable, with no evidence of radiopaque gallstones, gallbladder wall thickening or obvious pericholecystic inflammatory change. PANCREAS: Unremarkable. SPLEEN: Unremarkable. ADRENAL GLANDS: Unremarkable. KIDNEYS AND URETERS: The kidneys are normal in size and shape. There is very mild mineralization of medullary pyramids, in particular on the left (i.e., 3:19). This raises the possibility of early medullary nephrocalcinosis. At the lower pole of the left kidney (3:30), a 5 mm ovoid nonobstructing calculus is seen. At the interpolar left kidney (6:73), a 7 mm peripheral hemorrhagic/proteinaceous cyst is seen, with precontrast Hounsfield value of 91.0 units. At the lower pole of the left kidney (3:27) a 1.7 cm cyst is seen, with precontrast Hounsfield value of 10.8 units. No perinephric stranding. GASTROINTESTINAL TRACT: A small posterior gastric diverticulum is noted. The small and large bowel are unremarkable. There is a moderate stool burden. The appendix is not included in the [id number]. ABDOMINAL WALL: There is a tiny fat-containing umbilical hernia. LYMPH NODES: Normal. VASCULAR: Unremarkable. OSSEOUS STRUCTURES: Unremarkable. CT/CT abdomen wo IV con IMPRESSION: 1. A 5 mm nonobstructing left renal lower pole calculus is seen. No further urinary calculus is seen, and there is no obstructive uropathy. 2. 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 3. Small simple appearing and hemorrhagic/proteinaceous right renal cysts are presently noted. These were as well noted on the contrast-enhanced CT dated 12/03/2022, and no imaging follow-up is recommended. 4. There is a moderate stool burden, without andrés bowel obstruction noted in the upper abdomen. 5. There is a tiny fat-containing umbilical hernia. 6. Osseous structures are unremarkable. Fleischner guidelines were followed.
== END 2023-10-29 07:47 | disposition home or self-care (01) ==
LOC: HO.CT 07:46
PROVIDERS: Visit Provider Urology
DX: N20.0 Calculus of kidney (principal)
CPT/HCPCS: 74150

== ENCOUNTER 2023-11-06 09:28 | Outpatient (AMB) | payer OTHER, SELFPAY ==
--- NOTE | 2023-11-06 09:38 | MHC.OFFVIS ---
Intake Intake Visit Reasons: 6m follow up/CT(set) Intake Note: Patient is Present for Follow Up Urology Medication: Vitamin B6 Antibiotic Allergies: None Blood Thinners: None Allergies No Known Allergies Allergy (Verified 11/06/23 09:40) Medication List - Last Reconciled 11/06/23 by David Shaw MD pyridoxine (vitamin B6) 50 mg PO DAILY 90 days HPI HPI Comments History of Present Illness Details Raj is a pleasant male. He is seen for following urologic conditions - right impacted ureteric stone with hydroureteronephrosis Continue good response Imaging reviewed Small stone on imaging Minimal symptoms Continue vitamin B6 Nephrolithiasis Initial presentation through emergency room with longstanding right impacted ureteric stone Multiple procedures antegrade and retrograde in order to disimpact stone Question of chronic hydroureteronephrosis with possible renal damage Lab - 04/14 calcium 9.0 Stone composition - 01/15 calcium oxalate monohydrate 70%, carbonate apatite 15% Imaging - 11/14 CT scan 5 mm right lower pole stone resolution of chronic hydroureteronephrosis [facility] Medical History History of blood transfusion Surgical History History of abdominal surgery History of arthroplasty of right shoulder Social History Alcohol intake: never Patient Tobacco Use Status: Never used Tobacco Review of Systems Const Denies chills and Denies fever(s) Card Reports no additional complaints and Denies syncope Resp Denies cough GI Denies abdominal pain and Denies heartburn Reports as per HPI and Denies change in libido Neuro Denies syncope Psych Denies change in libido Endo Denies change in libido Physical Exam Const General: cooperative, healthy appearing, comfortable and no acute distress Orientation/consciousness: patient oriented x3 HEENT Face and sinus: Yes normal facial exam Mouth: moist mucous membranes Neck Neck: Yes normal visual inspection, Yes full ROM and Yes trachea midline Chest Chest palpation & inspection: normal inspection of the chest Resp Effort & Inspection: normal respiratory effort, able to speak in complete sentences and no respiratory distress GI Inspection: Yes normal to inspection Back/Spine/Pelvis Cervical Spine: normal cervical lordosis Thoracic/Lumbar Spine: thoracic and lumbar spine normal to inspection Skin General skin exam: no rashes or lesions noted Neuro General: patient oriented x3, gait normal, tone normal and moves all extremities Extrem General: Yes normal to inspection and Yes capillary refill normal Assessment & Plan Assessment & Plan (1) Nephrolithiasis: Code(s): N20.0 - Calculus of kidney (2) Hydroureteronephrosis: Code(s): N13.30 - Unspecified hydronephrosis Plan Twelve month follow-up Orders: Orders US renal BI 364 Days N20.0 - Calculus of kidney Medications: Refilled pyridoxine (vitamin B6) 50 mg PO DAILY 90 tabs 3RF 90 days N20.0 - Calculus of kidney Patient Instructions: Imaging studies, laboratory and physical exam results were discussed and reviewed in detail. No major barriers to patient understanding were identified. An opportunity to ask questions regarding the treatment plan was provided. All questions were answered. The patient expressed understanding and agreement with the above treatment plan. The patient is aware they should contact our office by phone for worsening of their current condition or the appearance of new urologic symptoms. Compliance is encouraged with any medications and followup testing that is ordered. It is a privilege to participate in the urologic care of your patient. If you have any questions or concerns regarding treatment for the above conditions, or other urologic issues, please do not hesitate to contact me. The office telephone contact is [phone]. This note is constructed using voice recognition software. While every effort has been made to ensure accuracy production staff worker errors may have been included. Yours sincerely, Dr David Shaw MD, F[facility] - Urology Providers of Expert, Compassionate Care for the Genitourinary System Coding Level of Care Code Est Pt Level 3 (72328) Diagnoses Nephrolithiasis N20.0 Hydroureteronephrosis N13.30
== END 2023-11-06 10:24 | disposition home or self-care (01) ==
PROVIDERS: Visit Provider Urology
DX: N20.0 Calculus of kidney (principal); N13.30 Unspecified hydronephrosis
CPT/HCPCS: 99213

== ENCOUNTER → 2023-11-06 09:28 | Outpatient (BNVA) | payer OTHER, SELFPAY | PROVIDERS: Visit Provider Urology ==

== ENCOUNTER 2024-10-26 08:16 | Outpatient (REF) | payer OTHER, SELFPAY | END 2024-10-26 08:17 | disposition home or self-care (01) | LOC: HO.HMGCX 08:16 | PROVIDERS: Visit Provider Urology | DX: N20.0 Calculus of kidney (principal) | CPT/HCPCS: 76775 ==

== ENCOUNTER 2024-11-08 09:36 | Outpatient (AMB) | payer OTHER, SELFPAY ==
--- NOTE | 2024-11-08 09:40 | MHC.OFFVIS ---
Intake Visit Reasons: 1Y Ultrasound(set) Intake Note: Patient is Present for 1Y ULTRASOUND Follow Up Urology Medication: Vitamin B6 Antibiotic Allergies: None Blood Thinners: None Insurance Verification Clerk Required: No Allergies No Known Allergies Allergy (Verified 11/08/24 09:41) HPI Comments Details: Raj is a pleasant male. He is seen for following urologic conditions - right impacted ureteric stone with hydroureteronephrosis Yearly follow-up - 11/15 - fragment of stone Minimal symptoms Continue vitamin B6 Nephrolithiasis Initial presentation through emergency room with longstanding right impacted ureteric stone Multiple procedures antegrade and retrograde in order to disimpact stone Question of chronic hydroureteronephrosis with possible renal damage Lab - 04/14 calcium 9.0 Stone composition - 01/15 calcium oxalate monohydrate 70%, carbonate apatite 15% Imaging - 11/14 CT scan 5 mm right lower pole stone resolution of chronic hydroureteronephrosis - 11/15 renal ultrasound 6 mm right lower pole stone, 3 mm left, small left cyst PFSH Medical History History of blood transfusion Surgical History History of abdominal surgery History of arthroplasty of right shoulder Social History Alcohol intake: never Patient Tobacco Use Status: Never used Tobacco Review of Systems Const Denies chills and Denies fever(s) Card Reports no additional complaints and Denies syncope Resp Denies cough GI Denies abdominal pain and Denies heartburn Reports as per HPI and Denies change in libido Neuro Denies syncope Psych Denies change in libido Endo Denies change in libido Physical Exam Const General: cooperative, healthy appearing, comfortable and no acute distress Orientation/consciousness: patient oriented x3 HEENT Face and sinus: Yes normal facial exam Mouth: moist mucous membranes Neck Neck: Yes normal visual inspection, Yes full ROM and Yes trachea midline Chest Chest palpation & inspection: normal inspection of the chest Resp Effort & Inspection: normal respiratory effort, able to speak in complete sentences and no respiratory distress GI Inspection: Yes normal to inspection Back/Spine/Pelvis Cervical Spine: normal cervical lordosis Thoracic/Lumbar Spine: thoracic and lumbar spine normal to inspection Skin General skin exam: no rashes or lesions noted Neuro General: patient oriented x3, gait normal, tone normal and moves all extremities Extrem General: Yes normal to inspection and Yes capillary refill normal Assessment & Plan Assessment & Plan (1) Hydroureteronephrosis: Code(s): N13.30 - Unspecified hydronephrosis Category: Medical (2) Nephrolithiasis: Code(s): N20.0 - Calculus of kidney Category: Medical Plan Twelve month follow-up renal ultrasound Orders: Orders US renal BI 12 Months N20.0 - Calculus of kidney Patient Instructions: Imaging studies, laboratory and physical exam results were discussed and reviewed in detail. No major barriers to patient understanding were identified. An opportunity to ask questions regarding the treatment plan was provided. All questions were answered. The patient expressed understanding and agreement with the above treatment plan. The patient is aware they should contact our office by phone for worsening of their current condition or the appearance of new urologic symptoms. Compliance is encouraged with any medications and followup testing that is ordered. It is a privilege to participate in the urologic care of your patient. If you have any questions or concerns regarding treatment for the above conditions, or other urologic issues, please do not hesitate to contact me. The office telephone contact is [phone]. This note is constructed using voice recognition software. While every effort has been made to ensure accuracy global security architect errors may have been included. Yours sincerely, Dr David Shaw MD, [facility] - Urology Providers of Expert, Compassionate Care for the Genitourinary System Coding Level of Care Code Est Pt Level 4 (07166) Diagnoses Hydroureteronephrosis N13.30 Nephrolithiasis N20.0
== END 2024-11-08 11:06 | disposition home or self-care (01) ==
PROVIDERS: Visit Provider Urology
DX: N13.30 Unspecified hydronephrosis (principal); N20.0 Calculus of kidney
CPT/HCPCS: 99214

== ENCOUNTER 2025-08-03 17:45 | Emergency (ER) | payer OTHER, SELFPAY ==
--- NOTE | ~2025-08-03 | XR_ITS ---
CLINICAL HISTORY: hematoemesis 2 view chest x-ray Comparison: None provided Findings: The lungs are clear. Normal size heart. No acute fracture. IMPRESSION: 1. No acute findings. This document has been electronically signed by: Daniel Lopes MD on 08/03/2025 22:45:29
--- NOTE | ~2025-08-03 | CT_ITS ---
CLINICAL HISTORY: LLQ pain, divertic? CT abdomen and pelvis with contrast Comparison: CT/REG/TX/SR - CT ABDOMEN WO IV CON - 10/29/23 08:02 EST Findings: The lung bases are clear. Small left inferior renal cyst. Right inferior renal cortical defect with small parenchymal calcification. This could be from prior ischemic or infectious insult. 3 mm nonobstructing left superior and probable left mid renal stones. Gallbladder and solid organs otherwise unremarkable. No bowel obstruction, pneumoperitoneum, or pneumatosis. Mesenteric vessels patent. Large amount of stool. Normal appendix. Moderate urinary bladder distention. The bones are intact. IMPRESSION: 1. Large amount of stool without bowel obstruction. No evidence of diverticulitis. 2. Additional findings as above. This document has been electronically signed by: Janis Gill MD on 08/04/2025 03:46:48
[2025-08-03 18:24] VITALS: BP 120/83; PULSE 108; RESP 16; TEMP 37.2; O2SAT 99; BMI 23.7
--- NOTE | 2025-08-03 18:26 | ED.GENADULT ---
HPI - General Adult General Chief complaint: Abdominal Pain Stated complaint: headache, abd pain, vomiting blood (hx bld ulcer) Time Seen by Provider: 08/03/25 23:07 Source: patient Limitations: no limitations History of Present Illness ED Provider: Radha Eduardo PA-C HPI narrative: 50-year-old male with a self report of gastric ulcers, kidney stones who presents with the abdominal pain x2 days. Pain over left lower abdomen, unable to describe the nature of his discomfort. Associated nausea vomiting, expelling coffee-ground emesis. Denies melena or bright red blood per rectum, no fever. No diarrhea. No constipation. No dysuria, hematuria or flank pain no back pain. Related Data Previous Rx's ?Medication ?Instructions ?Recorded pyridoxine (vitamin B6) 50 mg 50 mg PO DAILY 90 days #90 tabs 11/08/24 tablet Allergies Allergy/AdvReac Type Severity Reaction Status Date / Time No Known Allergies Allergy Verified 08/03/25 18:27 Review of Systems Review of Systems: Yes all other systems are reviewed and are negative Constitutional: Constitutional: Denies fatigue and Denies fever(s) Cardiovascular: Cardiovascular: Denies chest pain and Denies dyspnea Respiratory: Respiratory: Denies dyspnea Gastrointestinal: Gastrointestinal: Reports abdominal pain, Denies melena, Denies hematochezia, Reports coffee ground emesis, Denies constipation, Denies diarrhea, Reports nausea and Reports vomiting Genitourinary: Genitourinary: Denies hematuria, Denies dysuria and Denies flank pain Musculoskeletal: Musculoskeletal: Denies back pain Endocrine: Endocrine: Denies fatigue [facility] Past Medical History Attestation statement: The following information was validated with the patient. Medical History History of blood transfusion Surgical History History of abdominal surgery History of arthroplasty of right shoulder Social History Social History Alcohol intake: never Patient Tobacco Use Status: Never used Tobacco Smoked in Last 30 Days: No Use of substances other than those prescribed or required for medical reasons: No Advance Directives: No Advance Directives Information Provided: Yes Physical Exam ED Vital Signs: Vital Signs - 24 hr 08/03/25 18:24 08/03/25 23:05 08/04/25 01:33 Temperature 98.9 F 98.3 F 98.2 F Pulse Rate 108 H 84 93 Respiratory Rate 16 14 14 Blood Pressure 120/83 124/91 H 135/81 Pulse Oximetry 99 98 99 Oxygen Delivery Method Room Air Room Air Room Air 08/04/25 03:42 Temperature 98.4 F Pulse Rate 71 Respiratory Rate 16 Blood Pressure 121/86 Pulse Oximetry 98 Oxygen Delivery Method Room Air BMI result Body Mass Index 23.7 Const Other: Alert well-appearing Resp Effort & Inspection: normal respiratory effort Cardio Other: Normal peripheral perfusion GI Other: Abdomen is soft, nondistended, mild tenderness left lower abdomen without guarding, stool brown, no bright red blood per rectum, guaiac neg Course Course Course Narrative: This is a Rapid Medical Examination (RME) performed by Ana Buckley PA-C in triage. Full HPI, ROS, assessment and treatment plan per primary provider in the Main ED. Hx: 50 yo M here for eval of abdominal pain x yesterday w/ two episodes of bloody emesis today. no NSAID use. no thinners. Plan: labs Medications Administered Discontinued Medications Generic Name Dose Route Start Last Admin Trade Name Freq PRN Reason Stop Dose Admin Sodium Chloride 1,000 mls @ 999 mls/hr 08/03/25 23:45 08/04/25 01:07 Ns IV 08/04/25 00:45 Infused .Q1H1M BHARGAVI Infusion Iohexol 85 ml 08/04/25 03:15 08/04/25 03:16 Iohexol 350 Mg/Ml 100 Ml Infus..Btl IV 08/04/25 03:16 85 ml ONCE ONE Administration Ondansetron HCl 4 mg 08/03/25 23:39 08/04/25 00:08 Ondansetron Hcl 4 Mg/2 Ml Vial IVPUSH 08/03/25 23:40 4 mg ONCE ONE Administration Pantoprazole Sodium 40 mg 08/03/25 23:39 08/04/25 00:01 Pantoprazole Sodium 40 Mg/10 Ml Vial IVPUSH 08/03/25 23:40 40 mg ONCE ONE Administration Medical Decision Making Medical Decision Making MDM Narrative: 50-year-old male with a self report of gastric ulcers, kidney stones who presents with the abdominal pain x2 days. Pain over left lower abdomen, unable to describe the nature of his discomfort. Associated nausea vomiting, expelling coffee-ground emesis. Denies melena or bright red blood per rectum, no fever. No diarrhea. No constipation. No dysuria, hematuria or flank pain no back pain. Problem: Known gastric ulcer and kidney stones History: Per patient I have considered the following differential diagnoses: Upper GI bleed, lower GI bleed, perforated peptic ulcer, diverticulitis, renal colic Plan: Patient states he is having coffee-ground emesis, I have yet to observe, his stool color is brown there was no melena, we will send guaiac. Obtaining a CT scan. We will be giving Protonix Zofran analgesia and fluid. I have low suspicion for perforated peptic ulcer, chest x-ray was obtained there was no free air, and there are no peritoneal signs on exam. Thought about renal colic, however he has no related symptoms, no back or flank pain. We will screen a urinalysis. I have independently reviewed the following tests: Labs: Slight leukocytosis, with left shift, subtle thrombocytosis, no electrolyte abnormality, guaiac neg CT abdomen and pelvis:Small left inferior renal cyst. Right inferior renal cortical defect with small parenchymal calcification. This could be from prior ischemic or infectious insult. 3 mm nonobstructing left superior and probable left mid renal stones. Gallbladder and solid organs otherwise unremarkable. No bowel obstruction, pneumoperitoneum, or pneumatosis. Mesenteric vessels patent. Large amount of stool. Normal appendix. Moderate urinary bladder distention. The bones are intact. IMPRESSION: 1. Large amount of stool without bowel obstruction. No evidence of diverticulitis. 2. Additional findings as above. Differential Diagnosis Differential Diagnoses: The differential diagnosis associated with the presentation includes See medical decision-making Admission/Observation Consideration of admission/observation: Escalation of care including admission/observation considered Lab Data MDM Lab Attestation statement: I reviewed the patient's lab results. 08/03/25 18:34 08/03/25 18:34 Labs: Lab Results 08/03/25 08/03/25 08/04/25 Range/Units 18:34 23:04 03:44 WBC 11.3 H (4.8-10.8) X10*3/uL RBC 4.83 (4.60-5.80) X10*6/uL Hgb 14.1 (14.0-18.0) g/dl Hct 41.0 L (42.0-52.0) % MCV 84.9 (80.0-98.0) fL MCH 29.2 (27.0-33.0) pg MCHC 34.4 (31.0-36.0) g/dl RDW 14.3 (11.0-16.0) % Plt Count 406 H D (160-400) X10*3/uL MPV 8.9 L (9.4-12.4) fL Immature Gran % (Auto) 0.4 (0.0-0.4) % Neut % (Auto) 78.9 H (45-73) % Lymph % (Auto) 12.8 L (20-40) % [place] % (Auto) 5.9 (2-11) % Eos % (Auto) 1.1 (0-4) % Baso % (Auto) 0.9 (0-2) % Lymph # (Auto) 1.4 (1.2-4.9) X10*3/uL [place] # (Auto) 0.7 (0.1-1.2) X10*3/uL Eos # (Auto) 0.1 (0.0-0.4) X10*3/uL Baso # (Auto) 0.1 (0.0-0.2) X10*3/uL Abs Immat Gran (auto) 0.05 H (0.00-0.03) X10*3/uL Absolute Neuts (auto) 8.9 H (2.0-8.3) x10*3/uL Absolute Nucleated RBC 0.000 (0.0-0.012) X10*3/uL Nucleated RBC % (auto) 0.0 (0.0-0.2) /100WBC Sodium 141 (135-145) mmol/L Potassium 4.8 (3.3-5.1) mmol/L Chloride 106 (96-108) mmol/L Carbon Dioxide 25 (22-29) mmol/L Anion Gap 15 (12-20) BUN 18 H (9-16) mg/dL Creatinine 0.93 (0.5-1.4) mg/dL Estim Creat Clear Calc 95.9 Estimated GFR > 60 Random Glucose 102 (60-115) mg/dL Calcium 9.3 (8.4-10.2) mg/dL Magnesium 2.1 (1.6-2.6) mg/dL Total Bilirubin 0.9 (0.0-1.0) mg/dL AST 24 (5-37) U/L ALT 18 (0-40) U/L Alkaline Phosphatase 67 (39-117) U/L Total Protein 7.4 (6.5-8.0) g/dL Albumin 4.5 (3.5-5.0) g/dL Lipase 17 (8-78) U/L Stool Occult Blood NEGATIVE (NEGATIVE) Influenza Type A (PCR) NEGATIVE (Negative) Influenza Type B (PCR) NEGATIVE (Negative) RSV RNA Qual (PCR) NEGATIVE (Negative) SARS-CoV-2 RNA (RT-PCR) NEGATIVE (Negative) Radiology Impression Discussion of test interpretation with radiology: I have reviewed the radiologist's reading. Discharge Plan Discharge Clinical Impression: Constipation Patient Disposition: Home, Self-Care Instructions: Constipation (ED) Additional Instructions: All of your screening labs were normal, you were not found to have bleeding within the gastrointestinal system. You were found to be considerably constipated on the CT scan, there was no additional acute pathology. See home care instructions. You need to use [id number] Colace, this is a stool softener, twice a day. You need to purchase [id number] MiraLax, drink it multiple times a day, you can even drink it hourly, until you begin having multiple large volume bowel movements. Once you clear your current stool burden, stay on the Colace daily, an the MiraLax daily, to prevent further episodes of constipation. Follow up with primary care as needed. Prescriptions: No Action pyridoxine (vitamin B6) 50 mg tablet 50 mg PO DAILY 90 Days Qty: 90 3RF Print Language: [place] Citizen
[2025-08-03 18:39] LABS: MANUAL DIFF FLAG NO
[2025-08-03 18:40] LABS: Hematocrit 41.0 % (42.0-52.0); Hemoglobin 14.1 g/dl (14.0-18.0); Imm Gran Abs Auto 0.05 X10*3/uL (0.00-0.03); Imm Gran Pct Auto 0.4 % (0.0-0.4); Lymphocytes Absolute Auto 1.4 X10*3/uL (1.2-4.9); Mean Corpuscular HGB Conc 34.4 g/dl (31.0-36.0); Mean Corpuscular Hemoglobin 29.2 pg (27.0-33.0); Mean Corpuscular Volume 84.9 fL (80.0-98.0); NRBC Abs Auto 0.000 X10*3/uL (0.0-0.012); NRBC Pct Auto 0.0 /100WBC (0.0-0.2); Platelet Count 406 X10*3/uL (160-400); Red Blood Count 4.83 X10*6/uL (4.60-5.80); White Blood Count 11.3 X10*3/uL (4.8-10.8)
[2025-08-03 18:53] LABS: Alanine Aminotransferase 18 U/L (0-40); Albumin Level 4.5 g/dL (3.5-5.0); Alkaline Phosphatase 67 U/L (39-117); Anion Gap 15 (12-20); Aspartate Amino Transferase 24 U/L (5-37); Blood Urea Nitrogen 18 mg/dL (9-16); Calcium 9.3 mg/dL (8.4-10.2); Carbon Dioxide 25 mmol/L (22-29); Chloride 106 mmol/L (96-108); Creatinine Clr Calc Pharmacy 95.9; Estimated Glomerular Filt Rate > 60; Lipase 17 U/L (8-78); Magnesium 2.1 mg/dL (1.6-2.6); Potassium 4.8 mmol/L (3.3-5.1); Sodium 141 mmol/L (135-145); Total Protein 7.4 g/dL (6.5-8.0)
--- OUTSIDE RECORDS SUMMARY | 2025-08-03 22:35 | XMS_ITS | Clinical Summary ---
Author Organization [facility] Address [address] [place] [id number] Phone Care Team Providers Care Inspector [employer] Name Role Phone Faby Kinney MD Primary Care Provider + [phone] Allergies No known active allergies Medications benzonatate (TESSALON) 100 MG capsule Take 1 capsule (100 mg total) by mouth 3 (three) times a day as needed for cough. 20 capsule 11/24/2017 Active Social History Tobacco Use Types Packs/Day Years Used Date Smoking Tobacco: Never Assessed Sex and Gender Information Value Date Recorded Sex Assigned at Not on file Legal Sex Male 3:11 PM EST Gender Identity Not on file Sexual Orientation Not on file Last Filed Vital Signs Vital Sign Reading Time Taken Comments Blood Pressure 118/83 11/24/2017 3:28 PM EST Pulse 86 11/24/2017 3:28 PM EST Temperature 37.2 C (98.9 F) 11/24/2017 3:28 PM EST Respiratory Rate 18 11/24/2017 3:28 PM EST Oxygen Saturation 97% 11/24/2017 3:28 PM EST Inhaled Oxygen Concentration - - Weight 54.4 kg (120 lb) 11/24/2017 3:28 PM EST Height 182.9 cm (6') 11/24/2017 3:28 PM EST Body Mass Index 16.27 11/24/2017 3:28 PM EST Plan of Treatment Not on file Medical Devices Not on file Insurance [employer] [place] [employer] [place] [employer] [place] [employer] [place] [employer] [employer] [employer] [facility] [employer] Care Teams Inspector [employer] Relationship Specialty Start Date End Date Faby Kinney MD [address] [place] [address] [place] [address] PCP - General Family Medicine 11/24/17 Additional Source Comments The information contained in this document represents components of the legal health record. It is not the complete legal health record.[facility]
[2025-08-03 23:05] VITALS: BP 124/91; PULSE 84; RESP 14; TEMP 36.8; O2SAT 98
[2025-08-03 23:47] LABS: Resp Syncy Virus RNA Qual PCR NEGATIVE (Negative); SARS COV2 PCR INHOUSE NEGATIVE (Negative)
--- NOTE | 2025-08-04 00:28 | PC.NURSE ---
pt refused morphine- stated he had no pain. RN did not chart against it- simply returned it in the pyxis as pt may need pain relief later on.
[2025-08-04 01:33] VITALS: BP 135/81; PULSE 93; RESP 14; TEMP 36.8; O2SAT 99
[2025-08-04] MEDS: iohexoL 350 MG/ML 100 ML INFUS..BTL 85 ML IV (03:16)
[2025-08-04 03:42] VITALS: BP 121/86; PULSE 71; RESP 16; TEMP 36.9; O2SAT 98
[2025-08-04 03:50] LABS: OBS Int Ctl Valid YES; OBS1 NEGATIVE (NEGATIVE)
[2025-08-04 04:55] VITALS: BP 121/86; PULSE 71; RESP 16; TEMP 36.9; O2SAT 98
== END 2025-08-04 04:58 | disposition home or self-care (01) ==
PROVIDERS: Physician Assistant Medical; Emergency Provider Emergency Medicine
DX: K59.00 Constipation, unspecified (principal); R51.9 Headache, unspecified; K92.0 Hematemesis; R10.32 Left lower quadrant pain; R10.2 Pelvic and perineal pain; Z03.818 Encounter for observation for suspected exposure to other biological agents ruled out; Z79.899 Other long term (current) drug therapy
CPT/HCPCS: 36415; 71046; 74177; 80053; 82272; 83690; 83735; 85025; 87637; 96361; 96374; 96375; 99284; 99285; J2405; J2470; Q9967

== ENCOUNTER → 2025-08-03 21:58 | Outpatient (BNV) | payer OTHER, SELFPAY | PROVIDERS: Visit Provider Radiology Diagnostic Radiology | DX: K92.0 Hematemesis (principal) | CPT/HCPCS: 71046 ==

== ENCOUNTER → 2025-08-04 00:06 | Outpatient (BNV) | payer OTHER, SELFPAY | PROVIDERS: Emergency Provider Emergency Medicine; Visit Provider Radiology Diagnostic Radiology | DX: R10.32 Left lower quadrant pain (principal) | CPT/HCPCS: 74177 ==

== ENCOUNTER 2025-11-06 11:03 | Outpatient (REF) | payer OTHER, SELFPAY ==
--- NOTE | ~2025-11-06 | US_ITS ---
EXAMINATION: US RETROPERITONEAL LIMITED (RENAL ONLY) CLINICAL INFORMATION: N 20.0. Calculus of kidney.. COMPARISON: October 26, 2024. Correlated to CT abdomen and pelvis dated August 04, 2025 TECHNIQUE: Real-time ultrasound kidneys using grayscale technique. FINDINGS: RIGHT KIDNEY: 10 x 4 x 4 cm (SAG x AP x TRV). Normal echotexture. Renal cortical thickness is normal. No hydronephrosis. There is a 5 mm hyperechoic structure in the lower pole. No gross solid or cystic mass.. LEFT KIDNEY: 11 x 5 x 5 cm (SAG x AP x TRV). Normal echotexture Renal cortical thickness is normal. No hydronephrosis. There is a 2.5 cm lobulated possibly thin septated anechoic lesion without nodular component or flow on color Doppler interrogation centered in the lower pole. There are multiple less than 3 mm hyperechoic structures. US/US renal BI IMPRESSION: Bilateral nonobstructing nephrolithiasis. 2.5 cm thin septated exophytic cyst, lower pole left kidney. Please refer to the IV contrast enhanced CT abdomen dated August 04, 2025... Electronically signed by: Duke Jimenez MD 11/06/2025 12:53 PM EST
== END 2025-11-06 11:04 | disposition home or self-care (01) ==
LOC: HO.HMGCX 11:03
PROVIDERS: Visit Provider Urology
DX: N20.0 Calculus of kidney (principal)
CPT/HCPCS: 76775

== ENCOUNTER → 2025-11-06 11:18 | Outpatient (BNV) | payer OTHER, SELFPAY | PROVIDERS: Visit Provider Radiology Diagnostic Radiology | DX: N20.0 Calculus of kidney (principal); N28.1 Cyst of kidney, acquired | CPT/HCPCS: 76775 ==

== ENCOUNTER 2025-11-09 08:32 | Outpatient (AMB) | payer OTHER, SELFPAY ==
--- NOTE | 2025-11-09 08:34 | MHC.OFFVIS ---
Intake Visit Reasons: 1 YR US SET( UA IF ANY Sx) Intake Note: Reason for Visit: 1Y Ultrasound Results Urology Meds: Vitamin B6 Blood Thinners: None Labs: None Imaging: Renal US 11/03/25 Last PVR: None Level Vial Marker Required: No Accompanied by: Self / Same As Patient Allergies No Known Allergies Allergy (Verified 11/09/25 08:37) HPI Comments Details: Raj is a pleasant male. He is seen for following urologic conditions - right impacted ureteric stone with hydroureteronephrosis Yearly follow-up - 11/16 Ultrasound minimal stone Continue B6 Lemon water diet suggested Nephrolithiasis Initial presentation through emergency room with longstanding right impacted ureteric stone Multiple procedures antegrade and retrograde in order to disimpact stone Question of chronic hydroureteronephrosis with possible renal damage Lab - 04/14 calcium 9.0 Stone composition - 01/15 calcium oxalate monohydrate 70%, carbonate apatite 15% Imaging - 11/14 CT scan 5 mm right lower pole stone resolution of chronic hydroureteronephrosis - 11/15 renal ultrasound 6 mm right lower pole stone, 3 mm left, small left cyst PFSH Medical History History of blood transfusion Surgical History History of abdominal surgery History of arthroplasty of right shoulder Social History Alcohol intake: never Patient Tobacco Use Status: Never used Tobacco Review of Systems Const Denies chills and Denies fever(s) Card Reports no additional complaints and Denies syncope Resp Denies cough GI Denies abdominal pain and Denies heartburn Reports as per HPI and Denies change in libido Neuro Denies syncope Psych Denies change in libido Endo Denies change in libido Physical Exam Const General: cooperative, healthy appearing, comfortable and no acute distress Orientation/consciousness: patient oriented x3 HEENT Face and sinus: Yes normal facial exam Mouth: moist mucous membranes Neck Neck: Yes normal visual inspection, Yes full ROM and Yes trachea midline Chest Chest palpation & inspection: normal inspection of the chest Resp Effort & Inspection: normal respiratory effort, able to speak in complete sentences and no respiratory distress GI Inspection: Yes normal to inspection Back/Spine/Pelvis Cervical Spine: normal cervical lordosis Thoracic/Lumbar Spine: thoracic and lumbar spine normal to inspection Skin General skin exam: no rashes or lesions noted Neuro General: patient oriented x3, gait normal, tone normal and moves all extremities Extrem General: Yes normal to inspection and Yes capillary refill normal Assessment & Plan Assessment & Plan (1) Nephrolithiasis: Code(s): N20.0 - Calculus of kidney Category: Medical Plan Twelve month follow-up renal ultrasound Orders: Orders US renal BI 12 Months N20.0 - Calculus of kidney Medications: Refilled pyridoxine (vitamin B6) 50 mg PO DAILY 90 tabs 3RF 90 days N20.0 - Calculus of kidney Patient Instructions: This note is constructed using voice recognition software. While every effort has been made to ensure accuracy road freight firer errors may have been included. Imaging studies, laboratory and physical exam results were discussed and reviewed in detail. No major barriers to patient understanding were identified. An opportunity to ask questions regarding the treatment plan was provided. All questions were answered. The patient expressed understanding and agreement with the above treatment plan. The patient is aware they should contact our office by phone for worsening of their current condition or the appearance of new urologic symptoms. Compliance is encouraged with any medications and followup testing that is ordered. It is a privilege to participate in the urologic care of your patient. If you have any questions or concerns regarding treatment for the above conditions, or other urologic issues, please do not hesitate to contact me. The office telephone contact is [phone]. Sincerely, Dr David Shaw MD, [facility] - Urology Compassionate Specialist Care for the Genitourinary System Coding Level of Care Code Est Pt Level 4 (81833) Diagnoses Nephrolithiasis N20.0
== END 2025-11-09 08:47 | disposition home or self-care (01) ==
LOC: HO.HUSH 08:33
PROVIDERS: Visit Provider Urology
DX: N20.0 Calculus of kidney (principal)
CPT/HCPCS: 99214